=== PATIENT | female | born 1950 | race Caucasian/White ===

== ENCOUNTER 2017-11-01 02:28 | Day surgery (SDC) | payer OTHER ==
[~2017-11-01] VITALS: Ht 170.2 cm; Wt 145.0 kg
[~2017-11-01 02:28] MED LIST: ALBU90OI6 INH; ASPI81CH PO; BENZ100A PO; BUDE6HFA; Clonazepam1 MG PO; Coumadin2.5 MG PO; Furosemide20 MG PO; GABA800 PO; GLIP10 PO; INS70/30I SC; Klor-Con 1010 MEQ PO; LEVO750 PO; LISI20 PO; MECL25 PO; Mucinex Dm Tab1 EAC1; OXYB5 PO; OXYC1TAB11; PROAIR RESPICL90 MCG INH; Percocet 10-321 EACH PO; Pravastatin Sod40 MG PO; Prinivil10 MG PO; STIOLTO RESPIMAT4 GM INH; Synthroid/Lev0.05 MG PO; WARF5 PO; WARF7.5 PO
== END 2017-11-01 11:10 | disposition home or self-care (01) ==
LOC: MHTC 02:28
PROC: 0JH604Z Insertion of Pacemaker, Single Chamber into Chest Subcutaneous Tissue and Fascia, Open Approach (ICD-10-PCS; principal; 2017-11-01)
PROC: 02HK3JZ Insertion of Pacemaker Lead into Right Ventricle, Percutaneous Approach (ICD-10-PCS; principal; 2017-11-01)
DX: I48.2 Chronic atrial fibrillation (principal); R00.1 Bradycardia, unspecified; I10 Essential (primary) hypertension; E78.5 Hyperlipidemia, unspecified; E11.9 Type 2 diabetes mellitus without complications; E03.9 Hypothyroidism, unspecified; M19.90 Unspecified osteoarthritis, unspecified site; E66.9 Obesity, unspecified; I25.10 Atherosclerotic heart disease of native coronary artery without angina pectoris; J45.909 Unspecified asthma, uncomplicated; Z88.8 Allergy status to other drugs, medicaments and biological substances; Z79.84 Long term (current) use of oral hypoglycemic drugs; Z79.01 Long term (current) use of anticoagulants; Z79.899 Other long term (current) drug therapy; Z79.82 Long term (current) use of aspirin; Z87.891 Personal history of nicotine dependence
CPT/HCPCS: 33207; 71046; 82947; 99152; 99153; C1785; C1898; J0690; J1644; J2250; J3010; J7030; J7040; Q9967

== ENCOUNTER → 2024-03-23 | Outpatient (CLI) | payer OTHER ==
[2024-03-23 17:19] LABS: BASOPHILS ABSOLUTE AUTO 0.04 K/mm3 (0.00-0.23); BASOPHILS PERCENT AUTO 1 % (0-2); EOSINOPHILS ABSOLUTE AUTO 0.19 K/mm3 (0.00-0.68); EOSINOPHILS PERCENT AUTO 6 % (0-6); Hematocrit 29.5 % (33.0-51.0); Hemoglobin 9.1 g/dL (11.5-16.0); IMMATURE GRAN ABSOLUTE AUTO 0.01 K/mm3 (0.00-0.10); IMMATURE GRAN PERCENT AUTO 0 % (0-1); LYMPHOCYTES ABSOLUTE AUTO 0.92 K/mm3 (0.84-5.20); LYMPHOCYTES PERCENT AUTO 30 % (21-46); MONOCYTES ABSOLUTE AUTO 0.34 K/mm3 (0.16-1.47); MONOCYTES PERCENT AUTO 11 % (4-13); Mean Corpuscular HGB 27.1 pg (26.0-34.0); Mean Corpuscular HGB Conc 30.8 g/dL (31.5-36.5); Mean Corpuscular Volume 88 fL (80-100); Mean Platelet Volume 10.8 fL (9.1-12.4); NEUTROPHILS ABSOLUTE AUTO 1.57 K/mm3 (1.96-9.15); NEUTROPHILS PERCENT AUTO 51 % (41-73); Platelet Count 130 K/mm3 (150-400); RDW Coefficient Variation 16.9 % (11.7-14.2); RDW Standard Deviation 54.2 fL (35.1-46.3); Red Blood Cell Count 3.36 M/mm3 (3.80-5.20); White Blood Cell Count 3.07 K/mm3 (4.00-11.30)
[2024-03-23 17:32] LABS: Albumin, Blood 3.2 g/dL (3.4-5.0); Albumin/Globulin Ratio 0.8 (0.8-1.8); Bilirubin, Total 0.5 mg/dL (0.1-1.0); Bun/Creatinine Ratio 13.3 (12.0-20.0); Calcium, Blood 8.6 mg/dL (8.5-10.1); Creatinine, Blood 1.05 mg/dL (0.40-1.00); Potassium, Blood 4.1 mmol/L (3.5-5.5); Total Protein, Blood 7.2 g/dL (6.4-8.2)
== END ==
LOC: LAB SHORT 15:30 → LAB 15:30
PROVIDERS: Family Medicine
DX: I50.32 Chronic diastolic (congestive) heart failure (principal)
CPT/HCPCS: 80053; 83735; 85025

== ENCOUNTER 2024-05-14 22:43 | Emergency (ER) | payer OTHER ==
[~2024-05-14] VITALS: Ht 177.8 cm; Wt 113.4 kg
[2024-05-14 23:05] LABS: BASOPHILS ABSOLUTE AUTO 0.03 K/mm3 (0.00-0.23); BASOPHILS PERCENT AUTO 0 % (0-2); EOSINOPHILS ABSOLUTE AUTO 0.06 K/mm3 (0.00-0.68); EOSINOPHILS PERCENT AUTO 1 % (0-6); Hematocrit 30.1 % (33.0-51.0); Hemoglobin 9.4 g/dL (11.5-16.0); IMMATURE GRAN ABSOLUTE AUTO 0.02 K/mm3 (0.00-0.10); IMMATURE GRAN PERCENT AUTO 0 % (0-1); LYMPHOCYTES ABSOLUTE AUTO 0.45 K/mm3 (0.84-5.20); LYMPHOCYTES PERCENT AUTO 6 % (21-46); MONOCYTES ABSOLUTE AUTO 0.33 K/mm3 (0.16-1.47); MONOCYTES PERCENT AUTO 5 % (4-13); Mean Corpuscular HGB 27.4 pg (26.0-34.0); Mean Corpuscular HGB Conc 31.2 g/dL (31.5-36.5); Mean Corpuscular Volume 88 fL (80-100); Mean Platelet Volume 10.5 fL (9.1-12.4); NEUTROPHILS ABSOLUTE AUTO 6.24 K/mm3 (1.96-9.15); NEUTROPHILS PERCENT AUTO 88 % (41-73); Platelet Count 92 K/mm3 (150-400); RDW Standard Deviation 51.5 fL (35.1-46.3); Red Blood Cell Count 3.43 M/mm3 (3.80-5.20); White Blood Cell Count 7.13 K/mm3 (4.00-11.30)
[2024-05-14 23:09] LABS: Source, Urine Straight Cath
[2024-05-14 23:14] LABS: Bilirubin, Urine Neg (Neg); Blood, Urine 4+ (Neg); Glucose Qualitative, Urine Neg (Neg); Ketones, Urine Neg (Neg); Leukocyte Esterase, Urine 3+ (Neg); Nitrite, Urine Neg (Neg); Protein, Urine 2+ (Neg); Specific Gravity, Urine 1.015 (1.003-1.022); Urobilinogen, Urine NORM (Normal)
[2024-05-14 23:19] LABS: Alanine Aminotransfer (ALT/SGP 13 U/L (12-78); Albumin/Globulin Ratio 0.8 (0.8-1.8); Alk Phos 76 U/L (50-136); Anion Gap 13 mmol/L (3-11); Aspartate Aminotrans (AST/SGOT 24 U/L (12-37); Bilirubin, Total 0.7 mg/dL (0.1-1.0); Blood Urea Nitrogen 18 mg/dL (8-24); Bun/Creatinine Ratio 14.2 (12.0-20.0); CO2, Blood 23 mmol/L (21-32); Calcium, Blood 8.2 mg/dL (8.5-10.1); Chloride, Blood 105 mmol/L (98-108); Creatinine, Blood 1.27 mg/dL (0.40-1.00); Ethanol (Alcohol), Blood, Med <3 mg/dL; Globulin, Blood 3.9 g/dL (2.2-4.0); Glomerular Filtration Rate 44 (60-); Glucose, Blood 97 mg/dL (70-99); Potassium, Blood 3.4 mmol/L (3.5-5.5); Sodium, Blood 138 mmol/L (136-145); Total Protein, Blood 6.9 g/dL (6.4-8.2)
[2024-05-14 23:19] LABS: Amorphous Light (0-Heavy); Appearance, Urine Hazy (Clear); Bacteria Many /hpf; Color, Urine Yellow (P-Yellow); Red Blood Cells, Urine 0-2 /hpf (0-2); Squamous Epithelial Cells Few /hpf (Few); White Blood Cells, Urine 50-100 /hpf (0-5)
[2024-05-14] MEDS ORDERED: CefTRIAXone Sodium 2,000 MG in NS 100 ML IV ONE (23:40)
[2024-05-14] MEDS ORDERED: Acetaminophen 500 MG Tab PO ONE (23:45)
[2024-05-15] MEDS ORDERED: CEPH500 PO (00:15)
[2024-05-15] MEDS ORDERED: PERM5TC TOP (00:16)
[2024-05-15 01:00] VITALS: BP 114/89
== END 2024-05-15 01:15 | disposition home or self-care (01) ==
LOC: ER 22:43
PROVIDERS: Emergency Medicine
DX: N39.0 Urinary tract infection, site not specified (principal); B86 Scabies; J44.9 Chronic obstructive pulmonary disease, unspecified; M19.90 Unspecified osteoarthritis, unspecified site; Z87.891 Personal history of nicotine dependence; Z88.8 Allergy status to other drugs, medicaments and biological substances; Z79.01 Long term (current) use of anticoagulants; Z79.890 Hormone replacement therapy; Z79.4 Long term (current) use of insulin; Z79.84 Long term (current) use of oral hypoglycemic drugs; Z79.82 Long term (current) use of aspirin; Z79.899 Other long term (current) drug therapy; Z90.49 Acquired absence of other specified parts of digestive tract
CPT/HCPCS: 36415; 51701; 71046; 80053; 80320; 81001; 83605; 85025; 87040; 87077; 87086; 87186; 93005; 93010; 96365; 99285-25; A9270; J0696; P9612

== ENCOUNTER 2024-09-16 10:52 | Observation (INO) | payer OTHER ==
[~2024-09-16] VITALS: Ht 172.7 cm; Wt 123.0 kg
[~2024-09-16 10:52] MED LIST changes: +CEPH500 PO; -Coumadin2.5 MG PO; +EUTHYROX50 MCG PO; -GLIP10 PO; +GLIP2.5ER PO; -INS70/30I SC; +NOVOLIN 70100 UNIT/3 SC; +PERM5TC TOP; -Prinivil10 MG PO; -Synthroid/Lev0.05 MG PO
[2024-09-16 11:44] LABS: BASOPHILS ABSOLUTE AUTO 0.05 K/mm3 (0.00-0.23); BASOPHILS PERCENT AUTO 1 % (0-2); EOSINOPHILS ABSOLUTE AUTO 0.31 K/mm3 (0.00-0.68); EOSINOPHILS PERCENT AUTO 6 % (0-6); Hematocrit 31.2 % (33.0-51.0); IMMATURE GRAN ABSOLUTE AUTO 0.01 K/mm3 (0.00-0.10); IMMATURE GRAN PERCENT AUTO 0 % (0-1); LYMPHOCYTES PERCENT AUTO 22 % (21-46); MONOCYTES ABSOLUTE AUTO 0.62 K/mm3 (0.16-1.47); MONOCYTES PERCENT AUTO 12 % (4-13); Mean Corpuscular HGB 30.3 pg (26.0-34.0); Mean Corpuscular HGB Conc 32.1 g/dL (31.5-36.5); Mean Corpuscular Volume 95 fL (80-100); Mean Platelet Volume 9.8 fL (9.1-12.4); NEUTROPHILS ABSOLUTE AUTO 2.93 K/mm3 (1.96-9.15); NEUTROPHILS PERCENT AUTO 58 % (41-73); Platelet Count 153 K/mm3 (150-400); RDW Coefficient Variation 14.3 % (11.7-14.2); RDW Standard Deviation 49.7 fL (35.1-46.3); White Blood Cell Count 5.02 K/mm3 (4.00-11.30)
[2024-09-16 12:09] LABS: Albumin/Globulin Ratio 0.7 (0.8-1.8); Bilirubin, Total 0.6 mg/dL (0.1-1.0); Bun/Creatinine Ratio 12.3 (12.0-20.0); Calcium, Blood 8.7 mg/dL (8.5-10.1); Creatinine, Blood 1.06 mg/dL (0.40-1.00); Globulin, Blood 4.1 g/dL (2.2-4.0); Potassium, Blood 4.1 mmol/L (3.5-5.5); Total Protein, Blood 7.1 g/dL (6.4-8.2)
[2024-09-16] MEDS ORDERED: Albuterol 2.5 MG/3 ML VIAL INH SCH ×2 (14:40→18:00)
[2024-09-16] MEDS ORDERED: Furosemide 10 MG / ML 2ML Vial IV ONE ×2 (14:40→21:00)
[2024-09-16] MEDS ORDERED: Ipratropium Bromide INH 0.02% 0.5 mg/2.5ML Vial INH SCH ×2 (14:40→18:00)
[2024-09-16] MEDS ORDERED: MethylPREDNISolone Sod Succ 125 MG Vial IV ONE (14:40)
[2024-09-16 15:48] LABS: Influenza A, PCR NEGATIVE (NEGATIVE); Influenza B, PCR NEGATIVE (NEGATIVE); Resp Syncytial Virus, PCR NEGATIVE (NEGATIVE); SARS-Cov-2 (COVID-19) PCR, MMC NEGATIVE (NEGATIVE)
[2024-09-16] MEDS ORDERED: Albuterol 2.5 MG/3 ML VIAL INH PRN (20:10)
[2024-09-16] MEDS ORDERED: Ondansetron HCl 2 MG / ML 2ML Vial IV PRN (20:15)
[2024-09-16] MEDS ORDERED: Ipratropium/Albuterol SulF 2.5-0.5MG/3 ML Amp INH SCH (20:15)
[2024-09-16] MEDS ORDERED: FERSU300 PO (21:02)
[2024-09-16] MEDS ORDERED: Crestor40 MG PO (21:03)
[2024-09-16] MEDS ORDERED: CYCL10 PO (21:04)
[2024-09-16] MEDS ORDERED: METF500 PO (21:04)
[2024-09-16 21:21] LABS: International Normalized Ratio 3.96; Prothrombin Time Results 38.3 Sec (9.7-11.5)
[2024-09-16 21:26] LABS: Magnesium, Blood 1.9 mg/dL (1.6-2.4); Thyroid Stimulating Hormone 1.38 uIU/mL (0.360-4.800)
[2024-09-16] MEDS ORDERED: FLU VACC TS2024-25(6MOS UP)/PF 45 MCG/0.5 ML SYRINGE IM ONE (22:00)
[2024-09-16] MEDS ORDERED: CYMBALTA30 M2 PO (22:12)
[2024-09-16 22:15] VITALS: BP 161/57
[2024-09-16] MEDS ORDERED: Cyclobenzaprine HCl 10 MG Tab PO SCH (23:20)
--- NOTE | 2024-09-17 01:13 | NUR ---
PT PULLED IV ACCESS AND TELEMETRY OFF AND IS REFUSING TO RESTART BOTH. HOSPITALIST NOTIFIED AND GAVER VERBAL ORDER TO LEAVE IV AND TELE OFF, AND WILL REVIEW CHART TO TRANSITION IV RX TO PO.
--- NOTE | 2024-09-17 04:51 | NUR ---
SHIFT SUMMARY NOC PT A/OX 3-4. FORGETFUL AND LABILE AT TIMES. PT CBG 297 UPON ARRIVAL TO UNIT AND GIVEN 40 INITS HUMALIN FOR COVERAGE SO PT COULD EAT. PT ALSO GIVEN IV LASIX AND FLEXARIL FOR CHRONIC SCIATICA. HAD C/O'S OF IV ACCESS, TELEMETRY, AND RECEIVING LASIX. PT LATER PULLED IV ACCESS AND TOOK OFF TELEMETRY AND REFUSED TO REINITATE EITHER, HOSPITALIST NOTIFIED OF PT REFUSAL AND ORDER GIVEN TO DC TELEMETRY AND TO LEAVE OUT IV ACCESS AT THIS TIME. LASIX CHANGED FROM IV TO PO. NURSE NOTIFY ORDER IN PLACE FOR IV ACCESS. PT HAS PUREWICK IN PLACE FOR STRICT I&O'S FOR DIURESING FOR NEW ONSET CHF DX. PT SPOUSE BEDSIDE PER PT REQUEST DUE TO ANXIETY. PT ON O2 3L/NC FOR SLEEP WHICH IS BASELINE. PT CURRENTLY RESTING WITH BED IN LOWEST POSITION, AND CALL LIGHT WITHIN REACH.
[2024-09-17 05:18] VITALS: BP 149/65
[2024-09-17 05:36] LABS: BASOPHILS PERCENT AUTO 0 % (0-2); EOSINOPHILS PERCENT AUTO 0 % (0-6); Hematocrit 30.6 % (33.0-51.0); Hemoglobin 9.7 g/dL (11.5-16.0); IMMATURE GRAN ABSOLUTE AUTO 0.01 K/mm3 (0.00-0.10); IMMATURE GRAN PERCENT AUTO 0 % (0-1); LYMPHOCYTES ABSOLUTE AUTO 0.31 K/mm3 (0.84-5.20); LYMPHOCYTES PERCENT AUTO 11 % (21-46); MONOCYTES PERCENT AUTO 4 % (4-13); Mean Corpuscular HGB 30.1 pg (26.0-34.0); Mean Corpuscular HGB Conc 31.7 g/dL (31.5-36.5); Mean Corpuscular Volume 95 fL (80-100); NEUTROPHILS ABSOLUTE AUTO 2.29 K/mm3 (1.96-9.15); NEUTROPHILS PERCENT AUTO 85 % (41-73); Platelet Count 145 K/mm3 (150-400); RDW Coefficient Variation 14.2 % (11.7-14.2); Red Blood Cell Count 3.22 M/mm3 (3.80-5.20); White Blood Cell Count 2.71 K/mm3 (4.00-11.30)
[2024-09-17 05:57] LABS: Prothrombin Time Results 41.1 Sec (9.7-11.5)
[2024-09-17 06:00] LABS: International Normalized Ratio 4.28
[2024-09-17 06:09] LABS: Albumin, Blood 2.8 g/dL (3.4-5.0); Albumin/Globulin Ratio 0.6 (0.8-1.8); Bilirubin, Total 0.5 mg/dL (0.1-1.0); Bun/Creatinine Ratio 17.6 (12.0-20.0); Calcium, Blood 9.2 mg/dL (8.5-10.1); Creatinine, Blood 1.19 mg/dL (0.40-1.00); Globulin, Blood 4.4 g/dL (2.2-4.0); Magnesium, Blood 2.3 mg/dL (1.6-2.4); Potassium, Blood 4.2 mmol/L (3.5-5.5); Total Protein, Blood 7.2 g/dL (6.4-8.2)
[2024-09-17] MEDS ORDERED: Ondansetron 4 MG TAB PO PRN (06:25)
[2024-09-17] MEDS ORDERED: Insulin Isoph 70 / Reg 30 100 Unit/ML 10ML Vial SC SCH (07:30)
[2024-09-17 07:40] VITALS: BP 168/77
[2024-09-17] MEDS ORDERED: Furosemide 10 MG/ML 4ML Vial IV SCH (09:00)
[2024-09-17] MEDS ORDERED: Furosemide 80 MG Tab PO SCH (09:00)
[2024-09-17] MEDS ORDERED: Miconazole Nitrate 2% 85 GM PWD TOP SCH (09:00)
[2024-09-17 11:47] VITALS: BP 151/53
[2024-09-17] MEDS ORDERED: Methyl Salicylate/Menth/Camph 57 GM TUBE TOP PRN (15:10)
[2024-09-17 15:16] VITALS: BP 156/51
[2024-09-17] MEDS ORDERED: Menthol 1 EA Adhesive Patch TOP ONE (16:00)
[2024-09-17] MEDS ORDERED: DiphenhydrAMINE HCL/Zinc Acet Cream TOP PRN (16:15)
[2024-09-17] MEDS ORDERED: HydrOXYzine Pamoate 25 MG Cap PO PRN (16:15)
[2024-09-17] MEDS ORDERED: Insulin Human Lispro 100 Units/ML 3ML Syringe SC SCH (16:30)
--- NOTE | 2024-09-17 17:39 | NUR ---
PT CONTINUES HARD TO EDUCATE. STATES FEELS DEFINATELY HAS SOME SORT OF RED BUGS. PT HAS PRODUCED SEVERAL FLAKES OF SKIN FROM [facility]. NOTHING WITH LEGS OR MOUTH UP TO NOW. PT AGREES TO PLACE ANYTHING THAT MIGHT BE A BUG IN THE BEDSIDE SPECIMIN CUP AND CALL FOR RN. HEAD HAS 3 SORES THAT SHE IS PICKING AT REGULARLY. ORDERS FOR ATARAX STARTED AND BENADRYL CREAM TO START. PT ADMITTED TO RUNNING OUT OF DIURETIC COUPLE WEEKS AGO. THAT FEET AND LEGS STARTD TO SWELL THEN BECAME SHORT OF BREATH. DID MY BEST TO EDUCATE ON IMPORTANCE OF TAKING MEDS ORDERED AND KEEP SUPPLY NEEDED. PT WAS ADAMANT TO LEAVE THIS AFTERNOON. STATES BED IS BAD AND CANNOT SLEEP WELL. DISCUSSED WITH RECOMMENDS TO STAY OVERNIGHT. PLAN TO ADJUST MEDS TOMORROW. PT EVENTUALLY AGREED. NO OTHER NEW CONCERNS NOTED. BED IN LOW POSITION, CALLLITE IN REACH, CALLS APPROP
[2024-09-17 20:05] VITALS: BP 142/92
[2024-09-18 04:36] VITALS: BP 160/53
[2024-09-18] MEDS ORDERED: Levothyroxine Sodium 0.05 MG Tab PO SCH (06:00)
[2024-09-18 06:36] LABS: BASOPHILS PERCENT AUTO 0 % (0-2); EOSINOPHILS ABSOLUTE AUTO 0.01 K/mm3 (0.00-0.68); EOSINOPHILS PERCENT AUTO 0 % (0-6); Hematocrit 28.1 % (33.0-51.0); Hemoglobin 8.9 g/dL (11.5-16.0); IMMATURE GRAN ABSOLUTE AUTO 0.03 K/mm3 (0.00-0.10); IMMATURE GRAN PERCENT AUTO 0 % (0-1); LYMPHOCYTES ABSOLUTE AUTO 0.85 K/mm3 (0.84-5.20); LYMPHOCYTES PERCENT AUTO 12 % (21-46); MONOCYTES ABSOLUTE AUTO 0.49 K/mm3 (0.16-1.47); MONOCYTES PERCENT AUTO 7 % (4-13); Mean Corpuscular HGB Conc 31.7 g/dL (31.5-36.5); Mean Corpuscular Volume 95 fL (80-100); Mean Platelet Volume 9.9 fL (9.1-12.4); NEUTROPHILS ABSOLUTE AUTO 5.62 K/mm3 (1.96-9.15); NEUTROPHILS PERCENT AUTO 80 % (41-73); Platelet Count 157 K/mm3 (150-400); RDW Coefficient Variation 14.4 % (11.7-14.2); RDW Standard Deviation 50.2 fL (35.1-46.3); Red Blood Cell Count 2.97 M/mm3 (3.80-5.20)
[2024-09-18 07:06] LABS: Albumin, Blood 2.9 g/dL (3.4-5.0); Albumin/Globulin Ratio 0.8 (0.8-1.8); Bilirubin, Total 0.5 mg/dL (0.1-1.0); Bun/Creatinine Ratio 23.4 (12.0-20.0); Calcium, Blood 8.9 mg/dL (8.5-10.1); Creatinine, Blood 1.28 mg/dL (0.40-1.00); Globulin, Blood 3.7 g/dL (2.2-4.0); Potassium, Blood 4.4 mmol/L (3.5-5.5); Total Protein, Blood 6.6 g/dL (6.4-8.2)
[2024-09-18 07:29] LABS: International Normalized Ratio 3.95; Prothrombin Time Results 38.2 Sec (9.7-11.5)
[2024-09-18 07:34] VITALS: BP 158/54
[2024-09-18] MEDS ORDERED: Dose Adjust by Pharmacy XX STA (07:35)
[2024-09-18] MEDS ORDERED: Ferrous Sulfate 325 MG Tab PO SCH (09:00)
[2024-09-18] MEDS ORDERED: Rosuvastatin Calcium 10 MG Tab PO SCH (09:00)
[2024-09-18] MEDS ORDERED: Aspirin 81 MG Chew PO SCH (09:00)
[2024-09-18] MEDS ORDERED: Empagliflozin 10 MG TAB PO SCH (09:00)
[2024-09-18] MEDS ORDERED: Lisinopril 20 MG Tab PO SCH (09:00)
[2024-09-18] MEDS ORDERED: JARDIANCE10 MG PO (11:29)
--- NOTE | 2024-09-18 12:22 | NUR ---
PT DISCHARGED TO HOME. PT LEFT ROOM PRIOR TO THIS NOTE VIA WHEELCHAIR WITH SPOUSE. PT EDUCATED ON ALL DISCHAGE INSTRUCTIONS. PT EXTREMELY EAGER TO DISCHARGE AND IRRITABLE WITH WAITING FOR DISCHARGE. ALL DISCHARGE QUESTIONS ANSWERED. PT AGREES TO TAKE MEDICATIONS PRESCRIBED AND TO FOLLOW UP WITH PCP. NO IV IN PLACE AT TIME OF DISCHARGE
== END 2024-09-18 11:40 | disposition home or self-care (01) ==
LOC: ER 10:52 → MEDS 21:22
PROVIDERS: Family Medicine; Nurse Practitioner Acute Care; Physician Assistant; Student in an Organized Health Care Education/Training Program; ADMIT Student in an Organized Health Care Education/Training Program
DX: I11.0 Hypertensive heart disease with heart failure (principal); I50.33 Acute on chronic diastolic (congestive) heart failure; J44.9 Chronic obstructive pulmonary disease, unspecified; I48.20 Chronic atrial fibrillation, unspecified; E03.9 Hypothyroidism, unspecified; E66.2 Morbid (severe) obesity with alveolar hypoventilation; E11.65 Type 2 diabetes mellitus with hyperglycemia; Z79.01 Long term (current) use of anticoagulants; Z79.4 Long term (current) use of insulin; Z88.8 Allergy status to other drugs, medicaments and biological substances; Z99.89 Dependence on other enabling machines and devices
CPT/HCPCS: 0241U; 36415; 71046; 80053; 82947; 83036; 83735; 83880; 84443; 84484; 85025; 85610; 93005; 93010; 93306; 94640; 94644; 94664; 94760; 96374; 96375; 96376; 99285-25; A9270; G0378; J1815; J1940; J2919; Q0177

== ENCOUNTER 2024-09-28 06:14 | Observation (INO) | payer OTHER ==
[~2024-09-28] VITALS: Ht 172.7 cm; Wt 121.6 kg
[~2024-09-28 06:14] MED LIST changes: +CYCL10 PO; +CYMBALTA30 M2 PO; +Crestor40 MG PO; +FERSU300 PO; +JARDIANCE10 MG PO; +METF500 PO
[2024-09-28 06:58] LABS: BASOPHILS ABSOLUTE AUTO 0.03 K/mm3 (0.00-0.23); BASOPHILS PERCENT AUTO 1 % (0-2); EOSINOPHILS ABSOLUTE AUTO 0.17 K/mm3 (0.00-0.68); EOSINOPHILS PERCENT AUTO 4 % (0-6); Hematocrit 28.1 % (33.0-51.0); IMMATURE GRAN ABSOLUTE AUTO 0.01 K/mm3 (0.00-0.10); IMMATURE GRAN PERCENT AUTO 0 % (0-1); LYMPHOCYTES ABSOLUTE AUTO 0.39 K/mm3 (0.84-5.20); LYMPHOCYTES PERCENT AUTO 9 % (21-46); MONOCYTES PERCENT AUTO 12 % (4-13); Mean Corpuscular HGB 30.1 pg (26.0-34.0); Mean Corpuscular Volume 94 fL (80-100); Mean Platelet Volume 10.3 fL (9.1-12.4); NEUTROPHILS ABSOLUTE AUTO 3.06 K/mm3 (1.96-9.15); NEUTROPHILS PERCENT AUTO 74 % (41-73); Platelet Count 121 K/mm3 (150-400); RDW Coefficient Variation 13.7 % (11.7-14.2); RDW Standard Deviation 46.8 fL (35.1-46.3); Red Blood Cell Count 2.99 M/mm3 (3.80-5.20); White Blood Cell Count 4.16 K/mm3 (4.00-11.30)
[2024-09-28 07:11] LABS: Albumin, Blood 2.7 g/dL (3.4-5.0); Albumin/Globulin Ratio 0.7 (0.8-1.8); Bilirubin, Total 0.5 mg/dL (0.1-1.0); Bun/Creatinine Ratio 12.3 (12.0-20.0); Creatinine, Blood 1.14 mg/dL (0.40-1.00); Globulin, Blood 3.7 g/dL (2.2-4.0); Potassium, Blood 3.5 mmol/L (3.5-5.5); Total Protein, Blood 6.4 g/dL (6.4-8.2)
[2024-09-28] MEDS ORDERED: Octreotide Acetate 50 MCG in NS 50 ML IV ONE (08:10)
[2024-09-28 08:33] LABS: Magnesium, Blood 2.1 mg/dL (1.6-2.4); Phosphorus, Blood 2.7 mg/dL (2.5-4.9)
[2024-09-28] MEDS ORDERED: Magnesium Hydroxide Conc 10 ML UDC PO PRN (09:50)
[2024-09-28] MEDS ORDERED: FLU VACC TS2024-25(6MOS UP)/PF 45 MCG/0.5 ML SYRINGE IM SCH (09:55)
[2024-09-28] MEDS ORDERED: Bisacodyl 10 MG Supp PR PRN (09:55)
[2024-09-28 10:52] LABS: International Normalized Ratio 1.85; Prothrombin Time Results 18.9 Sec (9.7-11.5)
[2024-09-28] MEDS ORDERED: Lisinopril 20 MG Tab PO SCH (12:00)
[2024-09-28] MEDS ORDERED: Ipratropium/Albuterol SulF 2.5-0.5MG/3 ML Amp INH PRN (13:00)
[2024-09-28 13:42] LABS: Source, Urine Clean Catch
[2024-09-28 13:50] LABS: Appearance, Urine Hazy (Clear); Bilirubin, Urine Neg (Neg); Blood, Urine Neg (Neg); Glucose Qualitative, Urine Neg (Neg); Ketones, Urine Neg (Neg); Leukocyte Esterase, Urine 2+ (Neg); Nitrite, Urine Neg (Neg); Protein, Urine Neg (Neg); Specific Gravity, Urine 1.015 (1.003-1.022); Urobilinogen, Urine NORM (Normal)
[2024-09-28 14:14] LABS: Color, Urine Pale Yellow (P-Yellow)
[2024-09-28 14:15] LABS: Bacteria Many /hpf; Red Blood Cells, Urine 0-2 /hpf (0-2); Squamous Epithelial Cells Few /hpf (Few)
[2024-09-28] MEDS ORDERED: Warfarin Sodium 5 MG Tab PO ONE (18:00)
[2024-09-28 20:20] VITALS: BP 145/59
[2024-09-28] MEDS ORDERED: Sennosides 8.6 MG Tab PO SCH (21:00)
[2024-09-28] MEDS ORDERED: Docusate Sodium 100 MG Cap PO SCH (21:00)
[2024-09-28] MEDS ORDERED: BUME2 PO (21:47)
[2024-09-28] MEDS ORDERED: ATROVENT HFA12.9 GM INH (21:55)
[2024-09-28] MEDS ORDERED: ALBU90OI INH (21:56)
--- NOTE | 2024-09-28 22:34 | NUR ---
NEW T-ORDER RECEIVED FROM THE ON-CALL HOSPITALIST VARINDER: FLEXERIL PO 10MG AT BEDTIME 2100. ENTERED TO [employer], SEE EMAR. NO ADDITIONAL NEW ORDERS AT THIS TIME.
[2024-09-28] MEDS ORDERED: Cyclobenzaprine HCl 10 MG Tab PO SCH (22:35)
--- NOTE | 2024-09-29 00:07 | NUR ---
PT ARRIVED TO MEDICAL FLOOR RM#[id number] @2009. PT WAS TRANSFERRED TO HOSPITAL BED BY SLIDING FROM THE RNOBLE. PT'S BY THE BEDSIDE, ASSISTING GREATLY WITH PT'S ADL'S, AND SPENDING THE NIGHT. PT BROUGHT HER BELONINGS TO THE HOSPITAL ROOM. EDUCATED BLUEPRINTING MACHINE OPERATOR LIGHT AND PT WEARING NON-SLIP SOCKS. FAHAD NORIEGA COMPLETED THE ADMISSION ASSESSMENT, SKIN CHECK WITH THIS INFECTION CONTROL COORDINATOR. PT IS A/O X3-4, ABLE TO MAKE HER NEEDS KNOWN, COOPERATIVE WITH CARE. HS B.TELE: V-PACED @61, PT STATES HAS A PACEMAKER. @MIDNIGHT, O2 @3L VIA NASAL CANNULA PER PT REQUEST; PT SOB WHEN TRANSFERRED FROM THE BEDISIDE COMMODE TO THE BED. 1-PERSON ASSIST WITH FWW. BASELINE @HOME 2L VIA VT. PT STATES HAVING "WORMS IN THE STOOL, UNDER THE IV DRESSING AND ON HER SKIN FOR A SIX MONTHS OR LONGER". THIS INFECTION CONTROL COORDINATOR CHANGED THE IV DRESSING AND PLACED A HAT @COMMODE. DRAPERY HEMMER AUTOMATIC WAS NOTIFIED AND ASSESSED SKIN, NO WORMS NOTED AT THIS TIME. PT WAS EDUCATED BLUEPRINTING MACHINE OPERATOR LIGHT; W/I REACH. BED AT THE LOWEST POSITION. @0050 C/O DIZZINESS, BG 187.
[2024-09-29 04:45] VITALS: BP 150/56
[2024-09-29 05:31] VITALS: BP 122/58
[2024-09-29 07:24] VITALS: BP 131/41
[2024-09-29] MEDS ORDERED: Insulin Human Lispro 100 Units/ML 3ML Syringe SC SCH (07:30)
[2024-09-29 10:51] LABS: BASOPHILS ABSOLUTE AUTO 0.05 K/mm3 (0.00-0.23); BASOPHILS PERCENT AUTO 1 % (0-2); EOSINOPHILS ABSOLUTE AUTO 0.26 K/mm3 (0.00-0.68); EOSINOPHILS PERCENT AUTO 5 % (0-6); Hematocrit 30.1 % (33.0-51.0); Hemoglobin 9.4 g/dL (11.5-16.0); IMMATURE GRAN ABSOLUTE AUTO 0.01 K/mm3 (0.00-0.10); IMMATURE GRAN PERCENT AUTO 0 % (0-1); LYMPHOCYTES ABSOLUTE AUTO 0.87 K/mm3 (0.84-5.20); LYMPHOCYTES PERCENT AUTO 18 % (21-46); MONOCYTES ABSOLUTE AUTO 0.51 K/mm3 (0.16-1.47); MONOCYTES PERCENT AUTO 10 % (4-13); Mean Corpuscular HGB 29.7 pg (26.0-34.0); Mean Corpuscular HGB Conc 31.2 g/dL (31.5-36.5); Mean Corpuscular Volume 95 fL (80-100); Mean Platelet Volume 10.2 fL (9.1-12.4); NEUTROPHILS ABSOLUTE AUTO 3.24 K/mm3 (1.96-9.15); NEUTROPHILS PERCENT AUTO 66 % (41-73); Platelet Count 132 K/mm3 (150-400); RDW Coefficient Variation 13.8 % (11.7-14.2); RDW Standard Deviation 48.5 fL (35.1-46.3); Red Blood Cell Count 3.17 M/mm3 (3.80-5.20); White Blood Cell Count 4.94 K/mm3 (4.00-11.30)
[2024-09-29 11:07] LABS: International Normalized Ratio 2.59; Prothrombin Time Results 25.8 Sec (9.7-11.5)
[2024-09-29 11:23] LABS: Albumin, Blood 2.8 g/dL (3.4-5.0); Albumin/Globulin Ratio 0.7 (0.8-1.8); Bilirubin, Total 0.7 mg/dL (0.1-1.0); Bun/Creatinine Ratio 12.1 (12.0-20.0); Calcium, Blood 8.4 mg/dL (8.5-10.1); Creatinine, Blood 1.07 mg/dL (0.40-1.00); Globulin, Blood 3.8 g/dL (2.2-4.0); Phosphorus, Blood 1.9 mg/dL (2.5-4.9); Potassium, Blood 3.8 mmol/L (3.5-5.5); Total Protein, Blood 6.6 g/dL (6.4-8.2)
--- NOTE | 2024-09-29 12:04 | NUR ---
CALLED AND SPOKE WITH DR. GAUTHIER ABOUT PATIENT'S LAB RESULTS FOR REVIEW. I ALSO ASKED IF HE WANTED THE PATIENT TO GET CORRECTION INSULIN AND HE STATED TO HOLD OFF NO NOW. WILL HOLD INSULIN UNTIL ADVISED OTHERWISE.
[2024-09-29] MEDS ORDERED: INSULIN AS100 UNIT10 SC (15:04)
--- NOTE | 2024-09-29 15:19 | NUR ---
PT DISCHARGED THE PT VERBALIZED UNDERSTANDING OF THE DC INSTRUCTIONS. THE PT WAS TRANSFERED VIA WHEELCHAIR TO THE FRONT ACCOMPANIED BY HER /SO. BELONGINGS RELEASED TO THE PATIENT
--- NOTE | 2024-09-29 16:08 | NUR ---
EVS FOUND A RING WHILE CLEANING THE ROOM ([id number]) RETURNED TO THIS RN. THIS RN CALLED THE PATIENT SPOKE WITH HER ASHLEY; HE GAVE A DESCRIPTION OF THE RING; GOLD WITH A BLUE CENTER STONE. RING PLACED IN SPECIMEN CUP AND PATIENT LABEL AND LEFT AT [facility]; CELIA STATES THAT HE WILL COME BY TOMORROW 09/30 TO GET IT.
[2024-09-29] MEDS ORDERED: Warfarin Sodium 5 MG Tab PO ONE (18:00)
[2024-09-29] MEDS ORDERED: Cyclobenzaprine HCl 10 MG Tab PO SCH (21:00)
[2024-09-30 21:36] LABS: SERUM, C-PEPTIDE 2.1 ng/mL (0.5-3.3)
[2024-10-01 06:59] LABS: PROINSULIN, INTACT 6.1 pmol/L (<=7.2)
== END 2024-09-29 15:19 | disposition home or self-care (01) ==
LOC: ER 06:14 → ERHOLD 06:15 → MEDS 06:15
PROVIDERS: Family Medicine; Student in an Organized Health Care Education/Training Program; ADMIT Internal Medicine
DX: E11.649 Type 2 diabetes mellitus with hypoglycemia without coma (principal); E11.22 Type 2 diabetes mellitus with diabetic chronic kidney disease; N18.9 Chronic kidney disease, unspecified; J44.9 Chronic obstructive pulmonary disease, unspecified; I50.32 Chronic diastolic (congestive) heart failure; E03.9 Hypothyroidism, unspecified; I48.0 Paroxysmal atrial fibrillation; Z87.891 Personal history of nicotine dependence; Z79.84 Long term (current) use of oral hypoglycemic drugs; Z79.4 Long term (current) use of insulin; Z79.01 Long term (current) use of anticoagulants; Z79.82 Long term (current) use of aspirin; Z79.899 Other long term (current) drug therapy; Z88.8 Allergy status to other drugs, medicaments and biological substances; Z95.0 Presence of cardiac pacemaker; Z90.49 Acquired absence of other specified parts of digestive tract; Z90.710 Acquired absence of both cervix and uterus
CPT/HCPCS: 36415; 80053; 81001; 82010; 82533; 82947; 83735; 84100; 84206; 84681; 85025; 85610; 93005; 93010; 94760; 96365; 96366; 99285-25; A9270; G0378; G0480; J2354

== ENCOUNTER 2024-10-12 13:09 | Inpatient (IN) | payer OTHER ==
[~2024-10-12] VITALS: Ht 170.2 cm; Wt 120.0 kg
[~2024-10-12 13:09] MED LIST changes: +ALBU90OI INH; +ATROVENT HFA12.9 GM INH; +BUME2 PO; +INSULIN AS100 UNIT10 SC
[2024-10-12 14:14] LABS: Albumin, Blood 3.1 g/dL (3.4-5.0); Albumin/Globulin Ratio 0.8 (0.8-1.8); Bilirubin, Total 1.1 mg/dL (0.1-1.0); Bun/Creatinine Ratio 10.7 (12.0-20.0); Calcium, Blood 8.5 mg/dL (8.5-10.1); Creatinine, Blood 1.22 mg/dL (0.40-1.00); Globulin, Blood 3.9 g/dL (2.2-4.0); Potassium, Blood 3.9 mmol/L (3.5-5.5)
[2024-10-12 14:49] LABS: BASOPHILS ABSOLUTE AUTO 0.01 K/mm3 (0.00-0.23); BASOPHILS PERCENT AUTO 0 % (0-2); EOSINOPHILS PERCENT AUTO 0 % (0-6); Hematocrit 30.7 % (33.0-51.0); Hemoglobin 9.7 g/dL (11.5-16.0); IMMATURE GRAN ABSOLUTE AUTO 0.01 K/mm3 (0.00-0.10); IMMATURE GRAN PERCENT AUTO 0 % (0-1); LYMPHOCYTES ABSOLUTE AUTO 0.35 K/mm3 (0.84-5.20); LYMPHOCYTES PERCENT AUTO 11 % (21-46); MONOCYTES ABSOLUTE AUTO 0.55 K/mm3 (0.16-1.47); MONOCYTES PERCENT AUTO 18 % (4-13); Mean Corpuscular HGB 29.4 pg (26.0-34.0); Mean Corpuscular HGB Conc 31.6 g/dL (31.5-36.5); Mean Corpuscular Volume 93 fL (80-100); Mean Platelet Volume 10.5 fL (9.1-12.4); NEUTROPHILS ABSOLUTE AUTO 2.15 K/mm3 (1.96-9.15); NEUTROPHILS PERCENT AUTO 70 % (41-73); Platelet Count 101 K/mm3 (150-400); RDW Coefficient Variation 13.7 % (11.7-14.2); White Blood Cell Count 3.07 K/mm3 (4.00-11.30)
[2024-10-12] MEDS ORDERED: BUMETANIDE2 M6 PO (15:08)
[2024-10-12] MEDS ORDERED: ATROVENT HFA12.9 GM INH (15:09)
[2024-10-12] MEDS ORDERED: INSULIN AS100 UNIT10 SC (15:12)
[2024-10-12] MEDS ORDERED: IRON 65MG TAB (15:15)
[2024-10-12 15:40] LABS: Prothrombin Time Results 29.6 Sec (9.7-11.5)
[2024-10-12] MEDS ORDERED: Albuterol HFA200 ACT/6.7 GM INH INH PRN (17:20)
[2024-10-12] MEDS ORDERED: Ipratropium Bromide INH 0.02% 0.5 mg/2.5ML Vial INH SCH (17:25)
[2024-10-12] MEDS ORDERED: Mag Sulfate 1 GM/D5% 100ML 100 ML IV STA ×2 (17:27→20:45)
[2024-10-12] MEDS ORDERED: Potassium Chloride 20 MEQ TabCR PO ONE ×2 (17:30→19:00)
[2024-10-12] MEDS ORDERED: Aspirin 81 MG Chew PO ONE (17:30)
[2024-10-12] MEDS ORDERED: Ondansetron HCl 2 MG / ML 2ML Vial IV PRN (17:50)
[2024-10-12] MEDS ORDERED: FLU VACC TS2024-25(6MOS UP)/PF 45 MCG/0.5 ML SYRINGE IM SCH (17:50)
[2024-10-12] MEDS ORDERED: Bumetanide 0.25 MG/ML 4ML ViaL IV SCH (18:00)
[2024-10-12] MEDS ORDERED: Bumetanide 0.25 MG/ML 10ML Vial IV SCH (18:00)
[2024-10-12 19:25] LABS: Influenza B, PCR NEGATIVE (NEGATIVE); Resp Syncytial Virus, PCR NEGATIVE (NEGATIVE); SARS-Cov-2 (COVID-19) PCR, MMC NEGATIVE (NEGATIVE)
[2024-10-12 19:55] VITALS: BP 122/73
[2024-10-12] MEDS ORDERED: Melatonin 3 MG Tab PO PRN (20:45)
[2024-10-12] MEDS ORDERED: LORazepam 1 MG Tab PO PRN (20:45)
[2024-10-12] MEDS ORDERED: Cyclobenzaprine HCl 10 MG Tab PO SCH (21:00)
[2024-10-12 22:09] LABS: Adenovirus Not Detected (NOT DETECT); Bordetella pertussis Not Detected (NOT DETECT); Chlamydophila pneumoniae Not Detected (NOT DETECT); Coronavirus 229E Not Detected (NOT DETECT); Coronavirus HKU1 Not Detected (NOT DETECT); Coronavirus NL63 Not Detected (NOT DETECT); Coronavirus OC43 Not Detected (NOT DETECT); Human Metapneumovirus Not Detected (NOT DETECT); Human Rhinovirus/Enterovirus Not Detected (NOT DETECT); Influenza A/2009-H1 Not Detected (NOT DETECT); Influenza A/H1 Not Detected (NOT DETECT); Influenza A/H3 Detected (NOT DETECT); Influenza B Not Detected (NOT DETECT); Mycoplasma pneumoniae Not Detected (NOT DETECT); Parainfluenza Virus 1 Not Detected (NOT DETECT); Parainfluenza Virus 2 Not Detected (NOT DETECT); Parainfluenza Virus 3 Not Detected (NOT DETECT); Parainfluenza Virus 4 Not Detected (NOT DETECT); Respiratory Syncytial Virus Not Detected (NOT DETECT); SARS-Cov-2 (COVID-19), BioFire Not Detected (NOT DETECT)
--- NOTE | 2024-10-12 22:22 | NUR ---
UPDATE: PT RESP PANEL SHOWS PATIENT POSITIVE FOR FLU A. MD NOTIFIED, TAMIFLU ORDERED.
[2024-10-12] MEDS ORDERED: Oseltamivir Phosphate 75 MG Cap PO ONE (23:00)
[2024-10-12 23:24] VITALS: BP 128/59
[2024-10-12 23:40] LABS: Influenza A, PCR POSITIVE (NEGATIVE)
[2024-10-12] MEDS ORDERED: Dextromethorphan Polistirix 30 MG/5 ML 5ML Oral Syringe PO PRN (23:50)
[2024-10-13] VITALS (50 sets, daily range): BP systolic 81–173; BP diastolic 40–123
[2024-10-13] MEDS ORDERED: MAGNESIUM SULFATE IV ONE (04:15)
[2024-10-13 04:20] LABS: BASOPHILS ABSOLUTE AUTO 0.01 K/mm3 (0.00-0.23); BASOPHILS PERCENT AUTO 0 % (0-2); EOSINOPHILS ABSOLUTE AUTO 0.01 K/mm3 (0.00-0.68); EOSINOPHILS PERCENT AUTO 0 % (0-6); Hematocrit 31.6 % (33.0-51.0); Hemoglobin 10.1 g/dL (11.5-16.0); IMMATURE GRAN ABSOLUTE AUTO 0.01 K/mm3 (0.00-0.10); IMMATURE GRAN PERCENT AUTO 0 % (0-1); LYMPHOCYTES ABSOLUTE AUTO 0.29 K/mm3 (0.84-5.20); LYMPHOCYTES PERCENT AUTO 10 % (21-46); MONOCYTES ABSOLUTE AUTO 0.45 K/mm3 (0.16-1.47); MONOCYTES PERCENT AUTO 15 % (4-13); Mean Corpuscular HGB 29.9 pg (26.0-34.0); Mean Corpuscular Volume 94 fL (80-100); NEUTROPHILS ABSOLUTE AUTO 2.18 K/mm3 (1.96-9.15); NEUTROPHILS PERCENT AUTO 74 % (41-73); Platelet Count 107 K/mm3 (150-400); RDW Standard Deviation 47.6 fL (35.1-46.3); Red Blood Cell Count 3.38 M/mm3 (3.80-5.20); White Blood Cell Count 2.95 K/mm3 (4.00-11.30)
[2024-10-13 04:33] LABS: International Normalized Ratio 2.9; Prothrombin Time Results 28.7 Sec (9.7-11.5)
[2024-10-13 04:42] LABS: Albumin, Blood 3.2 g/dL (3.4-5.0); Albumin/Globulin Ratio 0.8 (0.8-1.8); Bilirubin, Total 1.3 mg/dL (0.1-1.0); Bun/Creatinine Ratio 12.6 (12.0-20.0); Calcium, Blood 8.1 mg/dL (8.5-10.1); Creatinine, Blood 1.27 mg/dL (0.40-1.00); Globulin, Blood 3.9 g/dL (2.2-4.0); Magnesium, Blood 1.8 mg/dL (1.6-2.4); Potassium, Blood 4.7 mmol/L (3.5-5.5); Total Protein, Blood 7.1 g/dL (6.4-8.2)
[2024-10-13 04:47] LABS: Bicarbonate Venous 24.9 mmol/L (24.0-30.0); pH Blood Venous 7.41 (7.34-7.37)
[2024-10-13] MEDS ORDERED: Mag Sulfate 1 GM/D5% 100ML 100 ML IV STA (04:48)
[2024-10-13] MEDS ORDERED: Furosemide 10 MG/ML 4ML Vial IV ONE (05:15)
[2024-10-13] MEDS ORDERED: Levothyroxine Sodium 0.05 MG Tab PO SCH (06:00)
--- NOTE | 2024-10-13 06:01 | NUR ---
UPDATE: PT HAVING DYSPNEA AND FREQUENT RUNS OF VTACH. ADMITTED WITH ACUTE RESP FAILURE, VOLUME OVERLOAD, FLU A. LABS DRAWN. 1 GRAM OF MAGNESIUM SULFATE GIVEN AT 0415 WITH SOME IMPROVEMENT OF CARDIAC IRRITABILITY FOR 30 MIN TO AN HR. PATIENT BEGAN HAVING RUNS OF VTACH AGAIN SHORTLY AFTER. DR. LOGAN ORDERED A ONE TIME DOSE OF LASIX IVP AND CPAP SETUP. PATIENT TOLERATED CPAP VERY BRIEFLY BEFORE BECOMING NONCOMPLIANT WITH THE DEVICE AND REFUSING TO WEAR IT. EDUCATED ON RISKS & BENEFITS. DUE INCREASED ACUITY AND LETHAL HEART RHYTHMS, PATIENT WAS TRANSFERRED TO ICU FOR HIGHER LEVEL OF CARE. HANDOFF DONE AT BEDSIDE.
[2024-10-13] MEDS ORDERED: LORazepam 2 MG/ML 1ML Injection IV PRN (06:05)
--- NOTE | 2024-10-13 06:09 | NUR ---
ASSUMPTION OF CARE/TRANSFER OF CARE FROM PCU PT ARRIVED FROM PCU AT 0544 ON BED. PT ALERT BUT CONFUSED. HR IRREGULAR WITH 3-10 BEAT RUNS OF V TACH EVERY 5 TO 10 SECS. BP 166/57 (87). PT ON CPAP OF 10 SAT OF 100% RATE OF 22. NO SOB OR CHEST PAIN. AMIODARONE INFUSING AT 1.0, POORLY DUE TO PT MOVEMENT OF RAC PIV. R POWERGLIDE QUICKLY PLACED BY CHARGE NURSE GILMER. LUNGS SOUND COARSE AT BASES. SHORTLY AFTER PLACEMENT OF PG, AROUND 0630, 30 BEAT RUN OF V TACH CAME AND WENT. PADS PLACED ON PT PROPHALACTICALY. CODE CART JUST OUTSIDE ROOM. NO AB PAIN, N/V. PUREWICK IN PLACE TO SUCTION. ATIVAN 0.5 ORDERED PRN Q 12 MOSTLY FOR MASK (CPAP/BIPAP) COMPLIANCE. PT HAS CALL LIGHT. REPORT GIVEN TO ONCOMING DAY NURSE.
[2024-10-13] MEDS ORDERED: Magnesium Sulfate 500 MG / ML 2ML Vial IV ONE (07:05)
[2024-10-13 07:26] LABS: Source, Urine Voided
[2024-10-13] MEDS ORDERED: Insulin Human Lispro 100 Units/ML 3ML Syringe SC SCH (07:30)
[2024-10-13 07:33] LABS: Appearance, Urine Clear (Clear); Bilirubin, Urine Neg (Neg); Blood, Urine 2+ (Neg); Color, Urine Yellow (P-Yellow); Glucose Qualitative, Urine Neg (Neg); Ketones, Urine Neg (Neg); Leukocyte Esterase, Urine Neg (Neg); Nitrite, Urine Neg (Neg); Protein, Urine 1+ (Neg); Urobilinogen, Urine NORM (Normal)
[2024-10-13 08:33] LABS: Bacteria Many /hpf; Squamous Epithelial Cells Rare /hpf (Few); White Blood Cells, Urine 0-2 /hpf (0-5)
[2024-10-13] MEDS ORDERED: Enoxaparin 40 MG/0.4 ML SYR SC SCH (09:00)
[2024-10-13] MEDS ORDERED: Ferrous Sulfate 325 MG Tab PO SCH (09:00)
[2024-10-13] MEDS ORDERED: PredniSONE 20 MG Tab PO SCH (09:00)
[2024-10-13] MEDS ORDERED: Potassium Chloride 20 MEQ TabCR PO SCH ×2 (09:00)
[2024-10-13] MEDS ORDERED: Aspirin 81 MG Chew PO SCH (09:00)
[2024-10-13] MEDS ORDERED: Atorvastatin 10 MG Tab PO SCH (09:00)
[2024-10-13] MEDS ORDERED: Oseltamvir Phosphate 30 MG Cap PO SCH (09:00)
[2024-10-13] MEDS ORDERED: Esmolol HCL 2500mg/250ml Prema 250 ML IV SCH (09:10)
--- NOTE | 2024-10-13 19:22 | NUR ---
DAY SHIFT SUMMARY PT BEGAN THE SHIFT W VERY FREQUENT RUNS OF VTACH SO CARDIOLOGY HAD THIS RN GIVE AN ADDITIONAL AMIODARONE BOLUS AND START EMOLOL. PT'S VTACH RESOLVING AFTER THESE MEDICATIONS WERE STARTED AND PT MAINTAINING PACED RYTHYM 60-65 W NO ECTOPY. PT'S BP WNL AND STABLE. PT SPO2 >92% ON 2L NC. PT VERY CONFUSED THIS SHIFT THINKING SHE WAS AT HOME AND CALLING OUT FOR FAMILY MEMBERS AT TIMES. PT REFUSING TO EAT THIS SHIFT BUT DID DO WELL W PO FLUIDS AND TOOK PO PILLS W/O DIFFICULTY. PT FINISHED IV AMIODARONE AT 1600 BUT ESMOLOL REMAINED INFUSING AT 50. WILL REPORT TO ONCOMING RN.
[2024-10-13] MEDS ORDERED: Bumetanide 0.25 MG/ML 10ML Vial IV ONE (19:30)
--- NOTE | 2024-10-13 19:39 | NUR ---
ASSUMPTION OF CARE PT VENTILATED AND SEDATED, FOLLOWING COMMANDS WHEN SEDATION REDUCED. PROPOFOL INCREASED BACK TO 30 FOR NOW. PT SHOWS A FLUTTER LIKE RHYTHM AT RATE OF 120 AND BP OF 120/61. VENT SETTINGS 18 400 7.0 30% WITYH 94% SATURATION. REPORTED CHEST PHYSIO TODAY DURING DAYSHIFT. [facility] REPORTED WELL. GARCIAS PATENT AND DRAINING.
--- NOTE | 2024-10-13 19:43 | NUR ---
UPDATE ON CODE STATUS - IN ADMITTING DOCUMENTATION THERE IS MENTION OF DNR STATUS BUT PATIENT WAS ADMITTED FULL CODE. COULD NOT FIND ANY NOTES OR DOCUMENTATION TO EXPLAIN THIS. PT IS CURRENTLY INTUBATED, DOES NOT AFFECT CURRENT CARE, BUT PT HAS BEEN INTUBATED TWICE DURING ADMISSION.
--- NOTE | 2024-10-13 20:00 | NUR ---
ASSUMPTION OF CARE CARE OF PT ASSUMED AT 1900 FOLLOWING REPORT FROM DAY NURSE. PT LYING IN BED GROANING, BUT WILL NOT VERBALIZE REASON. ALERT AND ORIENTED TO ALL, THOUGH AT TIMES CANNOT ANSWER BASIC QUESTIONS ABOUT SITUATION AND PERSONAL MEDICAL HISTORY. HR PACED 60 BPM WITH STABLE MAP BUT DECREASED DBPS. ESMOLOL AT 50, AMIO OFF, AND BUMEX SCHEDULED 2MG TID. CARE ADVOCATE ORDERS PUSH BUMEX 2MG IV AT TIME OF ASSESSMENT. PT SATURATION 98% ON 2L NC, THOUGH SHE REMOVES OCCASIONALLY BUT CONTINUES TO SAT AROUND 90%. LUNGS ARE MOSTLY CLEAR BUT DIMINISHED IN BASES WITH SCATTERED CRACKLES.. PT LACKS APPETITE. PUREWICK IN PLACE TO SUCTION. CALL LIGHT WITHIN REACH.
[2024-10-13] MEDS ORDERED: MethylPREDNISolone Sod Succ 125 MG Vial IV SCH (21:00)
[2024-10-14] VITALS (28 sets, daily range): BP systolic 85–135; BP diastolic 36–102
[2024-10-14 03:59] LABS: Hemoglobin 8.9 g/dL (11.5-16.0); Mean Corpuscular HGB 29.8 pg (26.0-34.0); Mean Corpuscular HGB Conc 31.8 g/dL (31.5-36.5); Mean Corpuscular Volume 94 fL (80-100); Mean Platelet Volume 10.5 fL (9.1-12.4); Platelet Count 74 K/mm3 (150-400); RDW Coefficient Variation 13.9 % (11.7-14.2); RDW Standard Deviation 46.8 fL (35.1-46.3); Red Blood Cell Count 2.99 M/mm3 (3.80-5.20); White Blood Cell Count 1.05 K/mm3 (4.00-11.30)
[2024-10-14 04:18] LABS: Albumin, Blood 2.6 g/dL (3.4-5.0); Albumin/Globulin Ratio 0.8 (0.8-1.8); Bilirubin, Total 0.9 mg/dL (0.1-1.0); Calcium, Blood 7.9 mg/dL (8.5-10.1); Creatinine, Blood 1.28 mg/dL (0.40-1.00); Globulin, Blood 3.4 g/dL (2.2-4.0); Potassium, Blood 4.4 mmol/L (3.5-5.5)
[2024-10-14 04:42] LABS: BASOPHILS PERCENT MAN 0 % (0-2); EOSINOPHILS PERCENT MAN 0 % (0-6); LYMPHOCYTES % ATYPICAL MANUAL 2 % (0-0); LYMPHOCYTES PERCENT MAN 8 % (21-46); MONOCYTES ABSOLUTE MAN 0.12 K/mm3 (0.16-1.47); MONOCYTES PERCENT MAN 12 % (4-13); NEUTROPHILS ABSOLUTE MAN 0.81 K/mm3 (1.96-9.15); SEG NEUTROPHILS PERCENT MAN 78 % (41-73); TOTAL CELLS COUNTED 50
--- NOTE | 2024-10-14 07:28 | NUR ---
PT LYING IN BED SLEEPING. AWAKES TO VOICE AND IS SOMNOLENT AND ORIENTED TO PERSON, SELF, PLACE AND, AT TIMES, SITUATION. PT SEEMS LESS CONFUSED THIS AM. HR PACED RHYTHM 60 BPM AND STABLE TO SOF BP, DBP WAS 49-60 MOST OF SHIFT. ESMOLOL IS INFUSING AT 50 MCG/KG/MIN. PT TAKES WARFARIN AT HOME BUT INR IS THERAPEUTIC. 2 MG BUMEX PUSHED AT START OF SHIFT. 2MG TID SCHEDULED. PT DID NOT HANDLE BIPAP OR CPAP WELL, COMPLIANCE PRITCHETT, PT ON 2-5L NC, MORE WHEN SLEEPING, SAT OF >93%/ LUNGS SOUNDS WHEEZY. COUGH PRESENT. PUREWICK DID NOT WORK WELL DURING SHIFT- 2 FULLS BED CHANGES AND 2 SOAKED DIAPERS PLUS 1/3 OF SHEETS BELOW. DIFFICULT TO MEASURE STRICT I AND O. ESTIMATE WOULD BE A LITTLE OVER 1 LITER. PT HAS CALL LIGHT NEARBY.
[2024-10-14] MEDS ORDERED: Bumetanide 0.25 MG/ML 10ML Vial IV SCH ×2 (09:00)
[2024-10-14] MEDS ORDERED: Lidocaine 2% Jelly Uro-Jet UR ONE (11:30)
[2024-10-14 12:52] LABS: International Normalized Ratio 3.77; Prothrombin Time Results 36.6 Sec (9.7-11.5)
[2024-10-14] MEDS ORDERED: Metoprolol Succinate 25 MG TABCR PO SCH (13:15)
--- NOTE | 2024-10-14 14:55 | NUR ---
ASSUMED CARE... ASSUMED CARE OF PT AT 0945 FROM SHREE VÁSQUEZ. PT'S VS STABLE ESMOLOL GTT RUNNING PER ORDERS AT 50MCG. BP IS STABLE WITH MAPS>65. PT HAS 2+ EDEMA TO HER BLE, RIGHT ABD, RIGHT BREAST AND RIGHT ARM, PT LAYS ON HER RIGHT SIDE AND REFUSES TO TURN TO THE LEFT. PT IS ON 1-2L NC WITH O2 SATS>90% L/S CLEAR IN THE UPPER LOBES DIM WITH SLIGHT CRACKLES NOTED IN THE BASES. BT PRESENT AND HYPOACTIVE. ABD IS LARGE AND SOFT TO PALPATION. PT HAD A PURWICK IN PLACE THIS WAS REMOVED AND A GARCIAS WAS PLACED FOR STRICT I'S & O'S PER CHAIN PERSON. 14FR GARCIAS WAS PLACED BY THIS RN. THE ESMOLOL DRIP WAS STOPPED AT 1200 WITH NO CHANGES TO THE PT'S PACED RHYTHM. THE CHAIN PERSON WAS NOTIFIED AND NEW ORDERS FOR METOPROLOL WERE PLACED. CALL LIGHT IN REACH
--- NOTE | 2024-10-14 17:46 | NUR ---
SHIFT SUMMARY... NO ACUTE NEGATIVE CHANGES NOTED THIS SHIFT. PT'S VS HAVE BEEN STABLE. PT HAS BEEN OFF THE ESMOLOL GTT SINCE 1200 WITH NO ECTOPY AND NO OTHER EVENTS. PT'S GARCIAS IS PATENT AND DRAINING TO GRAVITY. PT WAS ON THE BEDPAN TO ATTEMPT A BM WITHOUT SUCCESS. PT CONTINUES TO DO WELL ON 2L NC WITH O2 SATS>90%. CALL LIGHT IN REACH.
[2024-10-14] MEDS ORDERED: Doxycycline Hyclate 100 MG TAB PO SCH (21:00)
[2024-10-15] VITALS (21 sets, daily range): BP systolic 96–142; BP diastolic 39–99
[2024-10-15 04:22] LABS: BASOPHILS PERCENT AUTO 0 % (0-2); EOSINOPHILS PERCENT AUTO 0 % (0-6); Hematocrit 28.3 % (33.0-51.0); Hemoglobin 9.1 g/dL (11.5-16.0); IMMATURE GRAN PERCENT AUTO 0 % (0-1); LYMPHOCYTES ABSOLUTE AUTO 0.18 K/mm3 (0.84-5.20); LYMPHOCYTES PERCENT AUTO 11 % (21-46); MONOCYTES ABSOLUTE AUTO 0.08 K/mm3 (0.16-1.47); MONOCYTES PERCENT AUTO 5 % (4-13); Mean Corpuscular HGB 29.5 pg (26.0-34.0); Mean Corpuscular HGB Conc 32.2 g/dL (31.5-36.5); Mean Corpuscular Volume 92 fL (80-100); Mean Platelet Volume 11.1 fL (9.1-12.4); NEUTROPHILS ABSOLUTE AUTO 1.37 K/mm3 (1.96-9.15); NEUTROPHILS PERCENT AUTO 84 % (41-73); Platelet Count 92 K/mm3 (150-400); RDW Coefficient Variation 13.7 % (11.7-14.2); RDW Standard Deviation 46.4 fL (35.1-46.3); Red Blood Cell Count 3.08 M/mm3 (3.80-5.20); White Blood Cell Count 1.63 K/mm3 (4.00-11.30)
[2024-10-15 04:40] LABS: Albumin, Blood 2.6 g/dL (3.4-5.0); Albumin/Globulin Ratio 0.7 (0.8-1.8); Bilirubin, Total 0.8 mg/dL (0.1-1.0); Bun/Creatinine Ratio 23.5 (12.0-20.0); Calcium, Blood 8.1 mg/dL (8.5-10.1); Creatinine, Blood 1.36 mg/dL (0.40-1.00); Globulin, Blood 3.5 g/dL (2.2-4.0); Potassium, Blood 4.3 mmol/L (3.5-5.5); Total Protein, Blood 6.1 g/dL (6.4-8.2)
[2024-10-15 04:42] LABS: Prothrombin Time Results 42.4 Sec (9.7-11.5)
[2024-10-15 04:53] LABS: International Normalized Ratio 4.42
--- NOTE | 2024-10-15 06:35 | NUR ---
END OF SHIFT SUMMARY NO ACUTE EVENTS OVERNIGHT. PT IS A/O X4 BUT SLOWER TO RESPOND; SHE IS ABLE TO MAKE HER NEEDS KNOWN. SPO2 >94% ON 2L NC; DRY HACKING COUGH NOTED WITH MINIMAL OUTPUT. AFEBRILE. V-PACED 100% WITH RATE 60; NO RUNS OF VTACH. SBP 100-120; MAP 60-70. POOR APPETITE BUT ABLE TO TOLERATE WATER AND MEDS. GARCIAS IN PLACE AND DRAINING TO GRAVITY. POWERGLIDE TO RUE PATENT WITH DRESSING C/D/I; SALINE LOCKED. WILL REPORT TO AM RN WHEN AVAILABLE.
[2024-10-15] MEDS ORDERED: Insulin Human Lispro 100 Units/ML 3ML Syringe SC SCH (07:30)
--- NOTE | 2024-10-15 09:02 | NUR ---
THIS RN ASSUMED CARE OF PT AT 0700, PT IS ALERT AND ORIENTED X3, PT WAS A LITTLE CONFUSED ABOUT THE DATE, BUT PT REDIRECTABLE AND FOLLOWS COMMANDS. PT HEART RATE IN THE 60s, COMPLETELY PACED AT 60, PT DENIES CHEST PAIN, BLOOD PRESSURE STABLE AT 96/61 MAP OF 72. PT IS ON 2L NC, 3L IS PT BASELINE, SATTING >95%, PT DENIES SHORTNESS OF BREATH. PT DOES HAVE GARCIAS DRAINING TO URINE. THIS RN TALKED TO AND AND BOTH AGREED PT CAN TRANSFER OUT OF ICU, NO NEW ACUTE CONCERNS AT THIS TIME. PLAN OF CARE CONTINUED.
[2024-10-15] MEDS ORDERED: Melatonin 5 MG Tablet PO PRN (16:05)
--- NOTE | 2024-10-15 17:37 | NUR ---
PT SUMMARY PT IS ALERT AND ORIENTED, PT HAS BEEN WITH MAJORITY OF THE DAY. PT/OT CAME BY AROUND 1600 AND WAS ABLE TO GET PT UP AND INTO THE CHAIR. PT/OT SAID SHE IS A X1 ASSIST AND STATED HELPS ENCOURAGE HER. SHE WAS WEAK BUT MOVED APPROPRIATELY WITH ASSISTANCE. THIS RN TALKED TO DR. PAPPAS AND PROVIDER SAID TO KEEP GARCIAS IN OVERNIGHT DUE TO PT BEING ON HIGH AMOUNTS OF DIURETICS, PT HAS NOT HAD ENOUGH OUTPUT AND THE PROVIDER WANTS TO WAIT FOR ECHO RESULTS TO COME BACK IN THE AM BEFORE THEY TAPER DIURETICS AND PULL GARCIAS. NO ACUTE EVENTS HAPPENED ON 10/15/24. PLAN OF CARE CONTINUED.
[2024-10-15] MEDS ORDERED: Lactobacil 2-S.Thermo-Bifido 1 1 Cap PO SCH (21:00)
[2024-10-16 00:11] VITALS: BP 114/50
--- NOTE | 2024-10-16 03:48 | NUR ---
TRANSFER TO [place] [id number] PT TRANSFERED TO MEDICAL FLOOR AT 0330. SHE WAS A/O X4 AND ABLE TO MAKE HER NEEDS KNOWN WHEN SHE LEFT ICU. SPO2 >92% ON 2L NC. AFEBRILE. HR 60, 100% V-PACED. SBP 110'S WITH MAP 65-70. TOLERATING PO WATER WELL. GARCIAS IN PLACE AND DRAINING TO GRAVITY. POWERGLIDE TO RUE PATENT WITH DRESSING C/D/I. REPORT GIVEN TO ANGELES VÁSQUEZ.
[2024-10-16 03:51] VITALS: BP 129/61
[2024-10-16 04:05] LABS: International Normalized Ratio 3.53; Prothrombin Time Results 34.4 Sec (9.7-11.5)
--- NOTE | 2024-10-16 04:20 | NUR ---
PT ARRIVED FROM ICU IN STABLE CONDITION. AGREE WITH [facility] SHIFT ASSESSMENT. PT DENIES PAIN AND NAUSEA AT THIS TIME. REPORTS N/T TO FEET THAT IS NOT NEW. REPORTS SOB WITH EXERTION. PT IS ON 2L O2 NC AT 95%. IS IN ROOM. PT DENIES NEED FOR ANYTHING AT THIS TIME. NO OTHER APPARENT SIGNS OF DISTRESS. CALL LIGHT IS IN REACH.
--- NOTE | 2024-10-16 04:23 | NUR ---
PT IS AAO X 4, REPORTS SOB WITH EXERTION, ON 2L O2 NC AT 95%. TELE IS V PACED AT 60. LAST BS WAS 262. DRY COUGH.
--- NOTE | 2024-10-16 06:03 | NUR ---
PT LYING IN BED, EYES CLOSED, APPEARS TO BE RESTING. BREATHING IS EVEN, UNLABORED. NO APPARENT SIGNS OF DISTRESS. IN ROOM, ALSO APPEARS TO BE RESTING. CALL LIGHT IS IN REACH. NO OTHER CHANGES THIS SHIFT.
[2024-10-16 06:25] LABS: BASOPHILS PERCENT AUTO 0 % (0-2); EOSINOPHILS PERCENT AUTO 0 % (0-6); Hematocrit 28.8 % (33.0-51.0); Hemoglobin 9.3 g/dL (11.5-16.0); IMMATURE GRAN PERCENT AUTO 0 % (0-1); LYMPHOCYTES ABSOLUTE AUTO 0.23 K/mm3 (0.84-5.20); LYMPHOCYTES PERCENT AUTO 10 % (21-46); MONOCYTES PERCENT AUTO 4 % (4-13); Mean Corpuscular HGB 29.7 pg (26.0-34.0); Mean Corpuscular HGB Conc 32.3 g/dL (31.5-36.5); Mean Corpuscular Volume 92 fL (80-100); Mean Platelet Volume 11.5 fL (9.1-12.4); NEUTROPHILS ABSOLUTE AUTO 1.99 K/mm3 (1.96-9.15); NEUTROPHILS PERCENT AUTO 86 % (41-73); Platelet Count 101 K/mm3 (150-400); RDW Coefficient Variation 13.6 % (11.7-14.2); RDW Standard Deviation 46.4 fL (35.1-46.3); Red Blood Cell Count 3.13 M/mm3 (3.80-5.20); White Blood Cell Count 2.32 K/mm3 (4.00-11.30)
[2024-10-16 06:42] LABS: Albumin, Blood 2.8 g/dL (3.4-5.0); Albumin/Globulin Ratio 0.9 (0.8-1.8); Bilirubin, Total 0.8 mg/dL (0.1-1.0); Calcium, Blood 8.2 mg/dL (8.5-10.1); Creatinine, Blood 1.31 mg/dL (0.40-1.00); Globulin, Blood 3.2 g/dL (2.2-4.0)
[2024-10-16] MEDS ORDERED: Magnesium Sulf 2 GM/Water 50ML 50 ML IV ONE (06:45)
[2024-10-16 07:27] VITALS: BP 122/55
[2024-10-16] MEDS ORDERED: Insulin Human Lispro 100 Units/ML 3ML Syringe SC SCH (07:30)
[2024-10-16] MEDS ORDERED: LISI5 PO (16:01)
[2024-10-16] MEDS ORDERED: ASPI81CH PO (16:05)
[2024-10-16] MEDS ORDERED: DELTASONE20 MG PO (16:06)
[2024-10-16] MEDS ORDERED: VISBIOME 112.51 EACH PO (16:07)
[2024-10-16] MEDS ORDERED: OSELTAMIVIR PHO PO (16:07)
[2024-10-16] MEDS ORDERED: METO25ER PO (16:07)
[2024-10-16] MEDS ORDERED: NITR100CA PO (16:08)
[2024-10-16] MEDS ORDERED: FERROUSUL325 MG PO (16:10)
--- NOTE | 2024-10-16 16:44 | NUR ---
DISCHARGE REVIEWED WITH PT AND SPOUSE. IV X2 PULLED INTACT. TELE REMOVED. PT VERBALIZED UNDERSTANDING MEDS AND INST. PT WHEELED TO DOOR AT 3353
[2024-10-16] MEDS ORDERED: Oseltamvir Phosphate 6 MG/ML 1MLORALSYR PO SCH (21:00)
== END 2024-10-16 17:30 | disposition home health service (06) | DRG 193 ==
LOC: ER 13:09 → PCU 17:44 → ICUE 17:44 → EDBEDREQ 18:06 → ER 18:46 → PCU 19:00 → ICUE 10-13 05:45 → MEDS 10-16 03:37
PROVIDERS: Emergency Medicine; Internal Medicine; Student in an Organized Health Care Education/Training Program; ADMIT Hospitalist
DX: J10.01 Influenza due to other identified influenza virus with the same other identified influenza virus pneumonia (principal); I21.A1 Myocardial infarction type 2; I50.33 Acute on chronic diastolic (congestive) heart failure; J96.01 Acute respiratory failure with hypoxia; J96.02 Acute respiratory failure with hypercapnia; I13.0 Hypertensive heart and chronic kidney disease with heart failure and stage 1 through stage 4 chronic kidney disease, or unspecified chronic kidney disease; I47.20 Ventricular tachycardia, unspecified; E87.1 Hypo-osmolality and hyponatremia; J44.1 Chronic obstructive pulmonary disease with (acute) exacerbation; D61.818 Other pancytopenia; I48.20 Chronic atrial fibrillation, unspecified; E11.649 Type 2 diabetes mellitus with hypoglycemia without coma; M19.90 Unspecified osteoarthritis, unspecified site; E03.9 Hypothyroidism, unspecified; Z68.38 Body mass index [BMI] 38.0-38.9, adult; N18.30 Chronic kidney disease, stage 3 unspecified; E11.22 Type 2 diabetes mellitus with diabetic chronic kidney disease; D63.1 Anemia in chronic kidney disease; I25.10 Atherosclerotic heart disease of native coronary artery without angina pectoris; E66.9 Obesity, unspecified; G47.00 Insomnia, unspecified; Z90.710 Acquired absence of both cervix and uterus; Z90.49 Acquired absence of other specified parts of digestive tract; Z87.891 Personal history of nicotine dependence; Z88.8 Allergy status to other drugs, medicaments and biological substances; Z79.890 Hormone replacement therapy; Z79.01 Long term (current) use of anticoagulants; Z79.899 Other long term (current) drug therapy; Z95.0 Presence of cardiac pacemaker; Z79.82 Long term (current) use of aspirin
CPT/HCPCS: 0202U; 0241U; 36415; 71046; 80053; 81001; 82803; 82947; 83605; 83735; 83880; 84145; 84439; 84443; 84484; 85025; 85060; 85610; 85651; 86141; 87077; 87086; 87186; 93005; 93010; 93308; 93321; 94640; 94660; 94664; 94761; 94762; 96365; 96366; 97116; 97162; 97165; 97530; 99285-25; A9270; C1751; J0282; J1940; J2060; J2919; J3475; J7060; J7512

== ENCOUNTER 2024-11-09 13:22 | Inpatient (IN) | payer OTHER ==
[~2024-11-09] VITALS: Ht 170.2 cm; Wt 119.7 kg
[~2024-11-09 13:22] MED LIST changes: +BUMETANIDE2 M6 PO; +DELTASONE20 MG PO; +FERROUSUL325 MG PO; +IRON 65MG TAB; +LISI5 PO; +METO25ER PO; +NITR100CA PO; +OSELTAMIVIR PHO PO; +VISBIOME 112.51 EACH PO
[2024-11-09 13:58] LABS: BASOPHILS ABSOLUTE AUTO 0.05 K/mm3 (0.00-0.23); BASOPHILS PERCENT AUTO 1 % (0-2); EOSINOPHILS ABSOLUTE AUTO 0.32 K/mm3 (0.00-0.68); EOSINOPHILS PERCENT AUTO 8 % (0-6); Hematocrit 18.8 % (33.0-51.0); IMMATURE GRAN ABSOLUTE AUTO 0.01 K/mm3 (0.00-0.10); IMMATURE GRAN PERCENT AUTO 0 % (0-1); LYMPHOCYTES ABSOLUTE AUTO 1.33 K/mm3 (0.84-5.20); LYMPHOCYTES PERCENT AUTO 32 % (21-46); MONOCYTES ABSOLUTE AUTO 0.51 K/mm3 (0.16-1.47); MONOCYTES PERCENT AUTO 12 % (4-13); Mean Corpuscular HGB 29.3 pg (26.0-34.0); Mean Corpuscular HGB Conc 31.9 g/dL (31.5-36.5); Mean Corpuscular Volume 92 fL (80-100); Mean Platelet Volume 10.7 fL (9.1-12.4); NEUTROPHILS ABSOLUTE AUTO 1.89 K/mm3 (1.96-9.15); NEUTROPHILS PERCENT AUTO 46 % (41-73); Platelet Count 193 K/mm3 (150-400); RDW Standard Deviation 53.1 fL (35.1-46.3); Red Blood Cell Count 2.05 M/mm3 (3.80-5.20); White Blood Cell Count 4.11 K/mm3 (4.00-11.30)
[2024-11-09 14:20] LABS: Alanine Aminotransfer (ALT/SGP 14 U/L (12-78); Albumin, Blood 2.4 g/dL (3.4-5.0); Albumin/Globulin Ratio 0.6 (0.8-1.8); Alk Phos 76 U/L (50-136); Anion Gap 13 mmol/L (3-11); Aspartate Aminotrans (AST/SGOT 29 U/L (12-37); Bilirubin, Total 1.2 mg/dL (0.1-1.0); Blood Urea Nitrogen 42 mg/dL (8-24); Bun/Creatinine Ratio 18.7 (12.0-20.0); CO2, Blood 25 mmol/L (21-32); Calcium, Blood 8.3 mg/dL (8.5-10.1); Chloride, Blood 99 mmol/L (98-108); Creatinine, Blood 2.25 mg/dL (0.40-1.00); Globulin, Blood 4.1 g/dL (2.2-4.0); Glomerular Filtration Rate 22 (60-); Glucose, Blood 137 mg/dL (70-99); Potassium, Blood 3.5 mmol/L (3.5-5.5); Sodium, Blood 133 mmol/L (136-145); Total Protein, Blood 6.5 g/dL (6.4-8.2)
[2024-11-09] MEDS ORDERED: Prinivil10 MG PO (15:31)
[2024-11-09] MEDS ORDERED: JANTOVEN3 M2 PO (15:32)
[2024-11-09] MEDS ORDERED: Ondansetron HCl 2 MG / ML 2ML Vial IV PRN (17:55)
[2024-11-09] MEDS ORDERED: FLU VACC TS2024-25(6MOS UP)/PF 45 MCG/0.5 ML SYRINGE IM ONE (17:55)
[2024-11-09] MEDS ORDERED: Bumetanide 0.25 MG/ML 4ML ViaL IV ONE (18:00)
[2024-11-09] MEDS ORDERED: Insulin Human Lispro 100 Units/ML 3ML Syringe SC SCH (18:00)
[2024-11-09] MEDS ORDERED: Albuterol 2.5 MG/3 ML VIAL INH PRN (18:00)
[2024-11-09 18:29] LABS: Percent Saturation 8.1 % (15.0-50.0)
[2024-11-09 18:31] LABS: International Normalized Ratio 3.01; Prothrombin Time Results 29.7 Sec (9.7-11.5)
[2024-11-09] MEDS ORDERED: NS 1,000 ML IV SCH (19:50)
[2024-11-09 21:24] VITALS: BP 83/52
--- NOTE | 2024-11-09 21:40 | NUR ---
ADMISSION REPORT RECEIVED FROM ER NURSE. PATIENT ARRIVES TO PCU 12 AT 2120, SLID OVER WITH ASSISTANCE OF STAFF. PATIENT ALERT, ORIENTED x4. ANSWERING MINIMAL QUESTIONS INDEPENDENTLY. THIS RN ATTEMPTING TO ASK PATIENT QUESTIONS BUT SPEAKING OVER PATIENT AND ANSWERING. ORIENTED x4, ABLE TO VOICE NEEDS BUT WHEN ASKED WHAT SNACKS PATIENT WOULD PREFER, PATIENT ASKED TO TELL STAFF WHAT PATIENT WOULD LIKE TO EAT. BP SOFT ON ADMISSION. ON RA WITH SPO2 >90%. TELE VPACED. BLOOD INFUSING ON ADMISSION. PATIENT ORIENTED TO ROOM AND CALL LIGHT SYSTEM.
[2024-11-09 22:00] VITALS: BP 110/42
[2024-11-09 22:30] VITALS: BP 122/50
[2024-11-09 22:45] VITALS: BP 130/92
--- NOTE | 2024-11-09 23:04 | NUR ---
UPDATE DR. CHAIDEZ INTO ROOM TO ASSESS PATIENT. WATER AND ICE CHIPS ONLY AT THIS TIME. DR. CHAIDEZ TO PLACE MORE ORDERS.
[2024-11-09 23:30] VITALS: BP 112/86
[2024-11-09 23:46] VITALS: BP 126/56
[2024-11-10] VITALS (18 sets, daily range): BP systolic 81–125; BP diastolic 33–81
[2024-11-10 05:05] LABS: BASOPHILS ABSOLUTE AUTO 0.04 K/mm3 (0.00-0.23); BASOPHILS PERCENT AUTO 1 % (0-2); EOSINOPHILS ABSOLUTE AUTO 0.36 K/mm3 (0.00-0.68); EOSINOPHILS PERCENT AUTO 10 % (0-6); Hematocrit 24.5 % (33.0-51.0); Hemoglobin 7.9 g/dL (11.5-16.0); IMMATURE GRAN ABSOLUTE AUTO 0.01 K/mm3 (0.00-0.10); IMMATURE GRAN PERCENT AUTO 0 % (0-1); LYMPHOCYTES ABSOLUTE AUTO 1.03 K/mm3 (0.84-5.20); LYMPHOCYTES PERCENT AUTO 28 % (21-46); MONOCYTES ABSOLUTE AUTO 0.58 K/mm3 (0.16-1.47); MONOCYTES PERCENT AUTO 16 % (4-13); Mean Corpuscular HGB 29.2 pg (26.0-34.0); Mean Corpuscular HGB Conc 32.2 g/dL (31.5-36.5); Mean Corpuscular Volume 90 fL (80-100); Mean Platelet Volume 10.8 fL (9.1-12.4); NEUTROPHILS ABSOLUTE AUTO 1.73 K/mm3 (1.96-9.15); NEUTROPHILS PERCENT AUTO 46 % (41-73); Platelet Count 173 K/mm3 (150-400); RDW Coefficient Variation 15.6 % (11.7-14.2); RDW Standard Deviation 50.4 fL (35.1-46.3); Red Blood Cell Count 2.71 M/mm3 (3.80-5.20); White Blood Cell Count 3.75 K/mm3 (4.00-11.30)
[2024-11-10 05:32] LABS: International Normalized Ratio 2.74; Prothrombin Time Results 27.2 Sec (9.7-11.5)
[2024-11-10 05:43] LABS: Albumin, Blood 2.4 g/dL (3.4-5.0); Albumin/Globulin Ratio 0.6 (0.8-1.8); Bilirubin, Total 1.5 mg/dL (0.1-1.0); Bun/Creatinine Ratio 19.2 (12.0-20.0); Calcium, Blood 8.1 mg/dL (8.5-10.1); Creatinine, Blood 2.13 mg/dL (0.40-1.00); Globulin, Blood 4.1 g/dL (2.2-4.0); Magnesium, Blood 2.1 mg/dL (1.6-2.4); Potassium, Blood 3.5 mmol/L (3.5-5.5); Total Protein, Blood 6.5 g/dL (6.4-8.2)
[2024-11-10] MEDS ORDERED: Levothyroxine Sodium 0.05 MG Tab PO SCH (06:00)
[2024-11-10] MEDS ORDERED: Aspirin 81 MG Chew PO SCH (09:00)
[2024-11-10] MEDS ORDERED: Bumetanide 1 MG Tab PO SCH (09:00)
[2024-11-10] MEDS ORDERED: Metoprolol Succinate 25 MG TABCR PO SCH (09:00)
[2024-11-10] MEDS ORDERED: Phytonadione 10 MG in NS 50 ML IV ONE (09:15)
[2024-11-10] MEDS ORDERED: Iron Dextran 50 MG / ML 2ML Vial IV ONE (09:20)
[2024-11-10] MEDS ORDERED: Phytonadione 1 MG/0.5 ML Injection IM ONE (10:00)
[2024-11-10 10:19] LABS: BASOPHILS ABSOLUTE AUTO 0.03 K/mm3 (0.00-0.23); BASOPHILS PERCENT AUTO 1 % (0-2); EOSINOPHILS ABSOLUTE AUTO 0.31 K/mm3 (0.00-0.68); EOSINOPHILS PERCENT AUTO 8 % (0-6); Hematocrit 24.3 % (33.0-51.0); Hemoglobin 7.8 g/dL (11.5-16.0); IMMATURE GRAN ABSOLUTE AUTO 0.01 K/mm3 (0.00-0.10); IMMATURE GRAN PERCENT AUTO 0 % (0-1); LYMPHOCYTES ABSOLUTE AUTO 1.03 K/mm3 (0.84-5.20); LYMPHOCYTES PERCENT AUTO 25 % (21-46); MONOCYTES ABSOLUTE AUTO 0.48 K/mm3 (0.16-1.47); MONOCYTES PERCENT AUTO 12 % (4-13); Mean Corpuscular HGB 28.8 pg (26.0-34.0); Mean Corpuscular HGB Conc 32.1 g/dL (31.5-36.5); Mean Corpuscular Volume 90 fL (80-100); Mean Platelet Volume 10.4 fL (9.1-12.4); NEUTROPHILS ABSOLUTE AUTO 2.21 K/mm3 (1.96-9.15); NEUTROPHILS PERCENT AUTO 54 % (41-73); Platelet Count 164 K/mm3 (150-400); RDW Coefficient Variation 15.9 % (11.7-14.2); RDW Standard Deviation 51.8 fL (35.1-46.3); Red Blood Cell Count 2.71 M/mm3 (3.80-5.20); White Blood Cell Count 4.07 K/mm3 (4.00-11.30)
[2024-11-10] MEDS ORDERED: Iron Dextran 975 MG in NS 250 ML IV ONE (11:00)
[2024-11-10] MEDS ORDERED: Lactated Ringer's 1,000 ML IV SCH (14:55)
[2024-11-10 15:09] LABS: BASOPHILS ABSOLUTE AUTO 0.04 K/mm3 (0.00-0.23); BASOPHILS PERCENT AUTO 1 % (0-2); EOSINOPHILS ABSOLUTE AUTO 0.25 K/mm3 (0.00-0.68); EOSINOPHILS PERCENT AUTO 6 % (0-6); Hematocrit 24.1 % (33.0-51.0); Hemoglobin 7.9 g/dL (11.5-16.0); IMMATURE GRAN ABSOLUTE AUTO 0.01 K/mm3 (0.00-0.10); IMMATURE GRAN PERCENT AUTO 0 % (0-1); LYMPHOCYTES ABSOLUTE AUTO 0.97 K/mm3 (0.84-5.20); LYMPHOCYTES PERCENT AUTO 22 % (21-46); MONOCYTES ABSOLUTE AUTO 0.59 K/mm3 (0.16-1.47); MONOCYTES PERCENT AUTO 13 % (4-13); Mean Corpuscular HGB 29.4 pg (26.0-34.0); Mean Corpuscular HGB Conc 32.8 g/dL (31.5-36.5); Mean Corpuscular Volume 90 fL (80-100); Mean Platelet Volume 10.2 fL (9.1-12.4); NEUTROPHILS ABSOLUTE AUTO 2.57 K/mm3 (1.96-9.15); NEUTROPHILS PERCENT AUTO 58 % (41-73); Platelet Count 165 K/mm3 (150-400); RDW Coefficient Variation 15.9 % (11.7-14.2); RDW Standard Deviation 51.5 fL (35.1-46.3); Red Blood Cell Count 2.69 M/mm3 (3.80-5.20); White Blood Cell Count 4.43 K/mm3 (4.00-11.30)
--- NOTE | 2024-11-10 15:25 | NUR ---
FLUSHED LAC IV SITE WITH 10NS/PATENT.
--- NOTE | 2024-11-10 15:48 | NUR ---
11/10/24 1548 Juvencio Tatum History, Chart, Medications and Allergies reviewed before start of procedure.MONITOR INTACT WITH CONTINUOUS PULSE OXIMETRY, CONTINUOUS END TITAL CO2, 3-LEAD EKG AND INTERMITTENT BLOOD PRESSURE.3-LEAD EKG REVIEWED WITH PHYSICIAN PRIOR TO START OF PROCEDURE.O2 VIA POM INTACT THROUGHOUT SEDATION/PROCEDURE.See Anesthesia record.
[2024-11-10] MEDS ORDERED: Etomidate 2MG / ML 10ML Vial ONE (15:49)
[2024-11-10] MEDS ORDERED: propofoL 20 ML IV ONE (15:50)
[2024-11-10] MEDS ORDERED: Pantoprazole Sodium 40 MG Tab PO ONE (17:00)
[2024-11-10] MEDS ORDERED: Sennosides 8.6 MG Tab PO ONE (17:00)
[2024-11-10] MEDS ORDERED: Polyethylene Glycol 3350 17 gm PO ONE (17:00)
--- NOTE | 2024-11-10 18:26 | NUR ---
SHIFT SUMMARY: PT WAS DENIED AUTHORIATION THIS AM FOR SNF. PT CALLED TO APPEAL DENIAL AND DISCOVERED THAT THERE WAS AN ERROR WITH INFORMATION THAT WAS SUBMITED TO INSURANCE. AUTORIZATION RESUBMITTED. PLAN TO KEEP PT AT THIS FACILITY TILL INSURANCE REPLIES TO AUTH. PT DENIED ANY COMPLAINTS DURING THIS SHIFT AND NO SIGNIFICANT EVENTS HAPPENED. WILL CONTINUE TO CARE FOR PT TILL END OF SHIFT.
--- NOTE | 2024-11-10 18:30 | NUR ---
SHIFT SUMMARY: NEURO: NO ACUTE CHANGES CARIDAC: NO ACUTE CHANGES RESP: PT ON 3L NC AT BASELINE ALTHOUGH PT WAS ON RA MOST OF THE DAY AND MAINTAINING O2 SATS AT 100%. /: PT WENT FOR AN EGD THIS EVENING. PRIOR TO EGD PT DID HAVE A SMALL BLACK BOWEL MOVEMENT THAT DID HAVE BRIGHT RED BLOOD ON THE TOILET PAPER. PT TO REMAIN NPO TILL TOMORROW FOR COLONOSCOPY. PT RECIVED VITAMIN K THIS MORNING. PT CALLS APPROPRIATELY. NO OTHER SIGNIFICANT EVENTS HAPPENED DURING THIS SHIFT. WILL CONTINUE TO CARE FOR PT TILL END OF SHIFT.
[2024-11-10] MEDS ORDERED: Peg/Electrolytes 4,000 ML BTL PO ONE (19:00)
[2024-11-10 20:47] LABS: BASOPHILS ABSOLUTE AUTO 0.04 K/mm3 (0.00-0.23); BASOPHILS PERCENT AUTO 1 % (0-2); EOSINOPHILS ABSOLUTE AUTO 0.31 K/mm3 (0.00-0.68); EOSINOPHILS PERCENT AUTO 7 % (0-6); Hematocrit 24.8 % (33.0-51.0); IMMATURE GRAN ABSOLUTE AUTO 0.01 K/mm3 (0.00-0.10); IMMATURE GRAN PERCENT AUTO 0 % (0-1); LYMPHOCYTES ABSOLUTE AUTO 1.17 K/mm3 (0.84-5.20); LYMPHOCYTES PERCENT AUTO 26 % (21-46); MONOCYTES ABSOLUTE AUTO 0.67 K/mm3 (0.16-1.47); MONOCYTES PERCENT AUTO 15 % (4-13); Mean Corpuscular HGB 28.8 pg (26.0-34.0); Mean Corpuscular HGB Conc 32.3 g/dL (31.5-36.5); Mean Corpuscular Volume 89 fL (80-100); Mean Platelet Volume 10.4 fL (9.1-12.4); NEUTROPHILS ABSOLUTE AUTO 2.38 K/mm3 (1.96-9.15); NEUTROPHILS PERCENT AUTO 52 % (41-73); Platelet Count 170 K/mm3 (150-400); RDW Coefficient Variation 15.7 % (11.7-14.2); RDW Standard Deviation 50.5 fL (35.1-46.3); Red Blood Cell Count 2.78 M/mm3 (3.80-5.20); White Blood Cell Count 4.58 K/mm3 (4.00-11.30)
[2024-11-11 03:21] LABS: BASOPHILS ABSOLUTE AUTO 0.05 K/mm3 (0.00-0.23); BASOPHILS PERCENT AUTO 1 % (0-2); EOSINOPHILS ABSOLUTE AUTO 0.27 K/mm3 (0.00-0.68); EOSINOPHILS PERCENT AUTO 5 % (0-6); Hematocrit 26.3 % (33.0-51.0); Hemoglobin 8.7 g/dL (11.5-16.0); IMMATURE GRAN ABSOLUTE AUTO 0.01 K/mm3 (0.00-0.10); IMMATURE GRAN PERCENT AUTO 0 % (0-1); LYMPHOCYTES PERCENT AUTO 22 % (21-46); MONOCYTES ABSOLUTE AUTO 0.71 K/mm3 (0.16-1.47); MONOCYTES PERCENT AUTO 12 % (4-13); Mean Corpuscular HGB 29.2 pg (26.0-34.0); Mean Corpuscular HGB Conc 33.1 g/dL (31.5-36.5); Mean Corpuscular Volume 88 fL (80-100); Mean Platelet Volume 10.7 fL (9.1-12.4); NEUTROPHILS ABSOLUTE AUTO 3.63 K/mm3 (1.96-9.15); NEUTROPHILS PERCENT AUTO 61 % (41-73); Platelet Count 206 K/mm3 (150-400); RDW Coefficient Variation 15.9 % (11.7-14.2); Red Blood Cell Count 2.98 M/mm3 (3.80-5.20); White Blood Cell Count 5.97 K/mm3 (4.00-11.30)
[2024-11-11 03:49] LABS: Bun/Creatinine Ratio 21.8 (12.0-20.0); Calcium, Blood 8.1 mg/dL (8.5-10.1); Creatinine, Blood 1.65 mg/dL (0.40-1.00); Potassium, Blood 3.6 mmol/L (3.5-5.5)
[2024-11-11 05:15] VITALS: BP 121/65
--- NOTE | 2024-11-11 05:56 | NUR ---
SHIFT SUMMARY PATIENT ALERT, ORIENTED x3-4, ABLE TO MAKE NEEDS KNOWN TO STAFF. BP SOFT AT TIMES. ON RA WITH SPO2 >90%. TELE VPACED 60s. PATIENT STARTED COLONOSCOPY PREP THIS SHIFT. RECTAL TUBE PLACED WITH SIGNIFICANT DARK BLACK/GREEN LIQUID STOOL OUT. PATIENT 1 PERSON ASSIST TO BEDSIDE COMMODE PRIOR TO RECTAL TUBE PLACEMENT. PATIENT TO BE NPO 0800 FOR COLONOSCOPY TODAY. NO OTHER CHANGES THIS SHIFT, WILL REPORT TO DAY SHIFT RN.
[2024-11-11] MEDS ORDERED: Pantoprazole Sodium 40 MG Tab PO SCH (06:00)
[2024-11-11 09:30] VITALS: BP 124/41
--- NOTE | 2024-11-11 10:10 | NUR ---
UPDATE: PT REFUSING MEDS AND CARE AT THIS TIME. PROVIDER AT BEDSIDE TO DISCUSS PLAN OF CARE WITH PT. PT DOES NOT WANT TO HAVE COLONOSCOPY TODAY AND WANTS TO GO HOME. DR LOBATO AND DR CHAIDEZ BOTH OKAY WITH PLAN TO DC TO HOME.
[2024-11-11 12:00] VITALS: BP 104/46
[2024-11-11] MEDS ORDERED: PANT20 PO (13:30)
--- NOTE | 2024-11-11 13:45 | NUR ---
DISCHARGE: PT DISCHARGED TO HOME WITH WRITTEN AND VERBAL DC INSTRUCTIONS AND WAS INSTRUCTED TO COME BAKC TO THE ED IF SYMPTOMS WORSEN. PT DENIES ANY QUESTIONS OR CONCERNS AT THIS TIME. IV WAS REMOVED WITH CATHETER INTACT. BELONGINGS WERE COLLECTED AND TAKEN HOME WITH PT VIA WHEEL CHAIR BY THIS RN
[2024-11-11] MEDS ORDERED: Warfarin Sodium 3 MG Tab PO ONE (18:00)
== END 2024-11-11 14:08 | disposition home or self-care (01) | DRG 378 ==
LOC: ER 13:22 → ERHOLD 13:23 → PCU 13:23
PROVIDERS: Internal Medicine; Internal Medicine Gastroenterology; Nurse Practitioner Acute Care; Physician Assistant; ADMIT Internal Medicine
PROC: 0DB78ZX Excision of Stomach, Pylorus, Via Natural or Artificial Opening Endoscopic, Diagnostic (ICD-10-PCS; 2024-11-10)
PROC: 0DB68ZX Excision of Stomach, Via Natural or Artificial Opening Endoscopic, Diagnostic (ICD-10-PCS; 2024-11-10)
PROC: 0W3P8ZZ Control Bleeding in Gastrointestinal Tract, Via Natural or Artificial Opening Endoscopic (ICD-10-PCS; principal; 2024-11-10 13:30)
PROC: 0DB98ZX Excision of Duodenum, Via Natural or Artificial Opening Endoscopic, Diagnostic (ICD-10-PCS; 2024-11-10 13:30)
DX: K31.82 Dieulafoy lesion (hemorrhagic) of stomach and duodenum (principal); E87.1 Hypo-osmolality and hyponatremia; I48.20 Chronic atrial fibrillation, unspecified; N17.9 Acute kidney failure, unspecified; R18.8 Other ascites; K76.6 Portal hypertension; I50.32 Chronic diastolic (congestive) heart failure; G47.33 Obstructive sleep apnea (adult) (pediatric); N18.30 Chronic kidney disease, stage 3 unspecified; E11.22 Type 2 diabetes mellitus with diabetic chronic kidney disease; J44.9 Chronic obstructive pulmonary disease, unspecified; E03.9 Hypothyroidism, unspecified; K74.60 Unspecified cirrhosis of liver; T50.2X5A Adverse effect of carbonic-anhydrase inhibitors, benzothiadiazides and other diuretics, initial encounter; K25.9 Gastric ulcer, unspecified as acute or chronic, without hemorrhage or perforation; T39.015A Adverse effect of aspirin, initial encounter; E11.65 Type 2 diabetes mellitus with hyperglycemia; I25.10 Atherosclerotic heart disease of native coronary artery without angina pectoris; E66.01 Morbid (severe) obesity due to excess calories; D50.0 Iron deficiency anemia secondary to blood loss (chronic); Z88.8 Allergy status to other drugs, medicaments and biological substances; Z95.0 Presence of cardiac pacemaker; Z79.01 Long term (current) use of anticoagulants; Z79.890 Hormone replacement therapy; Z79.4 Long term (current) use of insulin; Z79.82 Long term (current) use of aspirin; Z87.891 Personal history of nicotine dependence; Z68.37 Body mass index [BMI] 37.0-37.9, adult
CPT/HCPCS: 36415; 36430; 74177; 80048; 80053; 82272; 82728; 82947; 83540; 83550; 83735; 85025; 85610; 86850; 86900; 86901; 86923; 93005; 93010; 94762; 96374; 96375; 96376; 99284-25; A9270; G0378; J1750; J2704; J3430; J7030; J7050; J7120; P9016; Q9967